=== PATIENT | female | born 1930 | race Caucasian/White ===

== ENCOUNTER 2017-10-12 08:22 | Inpatient (IN) | payer OTHER ==
--- NOTE | 2017-10-12 08:31 | PDOC ---
History of Present Illness - General Chief Complaint: Injury Stated Complaint: FALL Time Seen by Provider: 10/12/17 08:30 History Source: Patient Exam Limitations: No Limitations - History of Present Illness Initial Comments: 10/12/17 09:15 Ms. Osei is a 86 yo F with a hx of HTN and hypothyroidism presented to the emergency department BIBA after a fall in her independent living assistance home at [facility] in [place] this morning. She is unsure of the exact time, but states she was walking with her walker when she fell backwards and landed on the left side of her neck. She denies loss of consciousness. Was not in a C- collar on presentation and placed in one approximately within 15 minutes. Denies the following: headaches, fever, lightheadedness, chest pain, SOB, abdominal pain, dysuria, hematuria, diarrhea, and constipation. Pmhx: HTN, hypothyroidism Shx: Left knee replacement 03/2017. Medications: tramadol. Notes she is NOT on aspirin but medication list presented by [facility] states she is on aspirin Allergies: NKDA Social hx: denies smoking, alcohol, and substance abuse. Past History - Past Medical History Allergies/Adverse Reactions: Allergies Allergy/AdvReac Type Severity Reaction Status Date / Time No Known Allergies Allergy Verified 10/12/17 08:30 Home Medications: Ambulatory Orders Atenolol [Tenormin -] 25 mg PO DAILY 10/12/17 Felodipine [Felodipine ER] 2.5 mg PO DAILY 10/12/17 Levothyroxine [Synthroid -] 25 mcg PO DAILY 10/12/17 Pravastatin Sodium 20 mg PO DAILY 10/12/17 Venlafaxine HCl ER [Effexor Xr -] 37.5 mg PO DAILY 10/12/17 Review of Systems - Review of Systems Able to Perform ROS?: Yes Constitutional: No: Chills, Diaphoresis, Fever *Physical Exam - Physical Exam General Appearance: Yes: Nourished, Appropriately Dressed HEENT: positive: EOMI, RENATE, Other (mouth drooping ) Respiratory/Chest: positive: Lungs Clear, Normal Breath Sounds, Other ( bilateral decreased bases) Cardiovascular: positive: Regular Rate, S1, S2, Tachycardia Vascular Pulses: Dorsalis-Pedis (R): 3+, Doralis-Pedis (L): 3+ Gastrointestinal/Abdominal: positive: Normal Bowel Sounds. 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 Osei is a 86 yo F with a hx of HTN and hypothyroidism BIBA who presents s/ p mechanical fall in her living assistance home today landing on her left neck without loss of consciousness. She was placed in a c collar on arrival (not on one in the ambulance) and has a residual right mouth corner droop she states is residual from her bells palsy in . Neuro exam intact with motor and sensation bilaterally. right corner mouth lag. Of concern is a cellulitis on her left ankle that has been ongoing for past month. Oral temp wnl but rectal temp at 9:30 am showed 100.3F. Did not require O2 prior to ED visit and thus has been placed on 3 L nasal canula. Ddx: cervical fracture (type 2,3 dens fx, bilateral facet dislocation, burst fracture), syncopal event, cellulitis, pneumonia, sepsis Initial vitals: Initial Vital Signs Temp Pulse Resp BP Pulse Ox 99.8 F H 99 H 26 H 179/96 85 L 10/12/17 08:30 10/12/17 08:30 10/12/17 08:30 10/12/17 08:30 10/12/17 08:30 Work up: Sepsis work up initiated when rectal temperature taken. Dr. Rosas was consulted approximately 10:30 am, awaiting call back. Per Dr. Rosas's request, will order a cervical MRI without contrast for further characterization. Pt admitted for cervical fracture Disposition: 10/12/17 10:47 10/12/17 13:32 10/12/17 13:40 10/13/17 14:07 *DC/Admit/Observation/Transfer Diagnosis at time of Disposition: Cellulitis Qualifiers: Site of cellulitis: extremity Site of cellulitis of extremity: lower extremity Laterality: left Qualified Code(s): L03.116 - Cellulitis of left lower limb Cervical spine fracture Qualifiers: Encounter type: initial encounter Cervical vertebra fracture level: C2 Fracture type: closed Fracture morphology: unspecified fracture morphology Fracture alignment: nondisplaced Qualified Code(s): S12.101A - Unspecified nondisplaced fracture of second cervical vertebra, initial encounter for closed fracture - Discharge Dispostion Decision to Admit order: Yes - Referrals - Patient Instructions - Post Discharge Activity
--- NOTE | 2017-10-12 10:01 | PDOC ---
Attending Attestation - Resident Resident Name: Irvin Zhang - ED Attending Attestation I have performed the following: I have examined & evaluated the patient, The case was reviewed & discussed with the resident, I agree w/resident's findings & plan, Exceptions are as noted - HPI HPI: 10/12/17 10:00 The patient is a 86 year old female from [facility] brought in by EMS, with a past medical history of hypertension, hypothyroidism, and L sided bells palsy who presents to the emergency department for evaluation of neck pain s/p fall. The patient reports severe neck pain after landing on the left side of her neck after falling backwards while ambulating with her walker this morning. Pt states she is unsure of the time of the fall or how she fell. She denies loss of consciousness or other trauma. At presentation, the patient is sob. The pt also reports 2 weeks of a painful wound to her L heel that she has been applying mupirocin to. Pt has been able to bear weight but states the pain has been getting worse. Denies trauma to the heel. The patient denies palpitations, chest pain, abdominal pain, lower back pain, headache, and dizziness. Denies fever, chills, nausea, vomiting, and any bowel/ urinary symptoms. Allergies: NKDA Social History: No reported alcohol, cigarette, or drug use. Surgical History: Hysterectomy, left knee. PCP: Dr. Salomón Monteiro ([phone]) - Physicial Exam PE: 10/12/17 10:11 GENERAL: Awake, alert, appears uncomfortable. HEAD: No signs of trauma EYES: PERRLA, EOMI, sclera anicteric, conjunctiva clear ENT: Auricles normal inspection, hearing grossly normal, nares patent, oropharynx clear without exudates. Moist mucosa NECK: Normal ROM, supple, no lymphadenopathy, JVD, or masses LUNGS: Breath sounds equal, clear to auscultation bilaterally. Taking shallow breaths due to neck pain, on 3L NC HEART: Regular rate and rhythm, normal S1 and S2, no murmurs, rubs or gallops ABDOMEN: Soft, nontender, normoactive bowel sounds. No guarding, no rebound. No masses EXTREMITIES: Normal range of motion, no edema. No clubbing or cyanosis. No cords , erythema, or tenderness. L heel with dry wound with surrounding erythema and induration BACK: +midline spinal tenderness in cervical spine and sacrum. No stepoffs or deformities. No bruising. Normal rectal tone, brown stool. Rectal temp 100.3 NEUROLOGICAL: Normal speech, +L sided facial droop, negative pronator drift, 5/ 5 strength in all 4 extremities, normal sensation to light touch in all 4 extremities, normal cerebellar exam, normal reflexes and tone. Gait deferred. SKIN: Warm, Dry, normal turgor, no rashes or lesions noted. - Medical Decision Making 10/12/17 10:30 86yo F w MMP presents to the ED with severe neck pain s/p fall. C-collar placed immediately upon arrival. +C3 midline ttp. Pt turned with c-spine precautions, also has some mild sacral ttp. Pt also found to have temp of 100.3 and likely cellulitis to the L ankle. CT c-spine with unstable c2/c3 fractures. Dr. Rosas c/s, awaiting call back. Pt likely fell due to weakness from infection , possible sepsis. Pt has been covered with vanc/Zosyn. Will admit. Heart Score/ECG Review #1 10/12/17 10:21 Twelve-lead EKG was performed and reviewed by me. Normal sinus rhythm, rate 95. Normal axis and intervals. No ST elevations or T-wave inversions.
[2017-10-12 10:11] LABS: BASO % 0.5 % (0-2.0); EOS % 0.5 % (0-4.5); HEMATOCRIT 35.7 % (32.4-45.2); LYMPH % 4.2 % (8-40); MCH 28.2 pg (25.7-33.7); MCHC 33.5 g/dl (32.0-36.0); MEAN PLT VOLUME 8.5 fl (7.5-11.1); MONO % 14.6 % (3.8-10.2); NEUT % 80.2 % (42.8-82.8); PLATELET COUNT 285 K/MM3 (134-434); RBC 4.25 M/mm3 (3.60-5.2); RDW 17.8 % (11.6-15.6); WHITE BLOOD COUNT 13.9 K/mm3 (4.0-10.0)
[2017-10-12 10:13] LABS: VENOUS PC02 49.6 mmHg (38-52); VENOUS PH 7.4 (7.32-7.42); VENOUS PO2 27.9 mmHg (28-48)
[2017-10-12] MEDS ORDERED: VANCOMYCIN 1,000 MG in DEXTROSE 5%-WATER - 250 ML IVPB ONE (10:27)
[2017-10-12] MEDS ORDERED: PIPERACILLIN/TAZOB 4.5 GM 4.5 GM in DEXTROSE 5%-WATER - 100 ML IVPB ONE (10:27)
[2017-10-12] MEDS ORDERED: ACETAMINOPHEN 1000 MG/100 ML VIAL (NON FORMULARY) IVPB ONE (10:32)
[2017-10-12 10:33] LABS: ALBUMIN 3.3 g/dl (3.4-5.0); ANION GAP 9 (8-16); BILIRUBIN,TOTAL 0.4 mg/dL (0.2-1.0); BLOOD UREA NITROGEN 18 mg/dL (7-18); CALCIUM 8.5 mg/dL (8.5-10.1); CHLORIDE 99 mmol/L (98-107); CO2 29 mmol/L (21-32); CREATININE 0.7 mg/dL (0.55-1.02); GLUCOSE,RANDOM 148 mg/dL (74-106); POTASSIUM 3.5 mmol/L (3.5-5.1); SGOT/AST 19 U/L (15-37); SGPT/ALT 26 U/L (12-78); SODIUM 137 mmol/L (136-145)
[2017-10-12 10:35] LABS: INR 1.11 (0.83-1.09); PROTHROMBIN TIME (PATIENT) 12.5 SEC (9.7-13.0)
[2017-10-12] MEDS ORDERED: ACETAMINOPHEN INJECTION 100 ML IVPB ONE (10:36)
[2017-10-12 10:37] LABS: ALK PHOS 82 U/L (45-117); TOT PROT 6.8 g/dl (6.4-8.2)
[2017-10-12] MEDS ORDERED: PIPERACILLIN/TAZOB 4.5 GM 4.5 GM/100 ML BAG IVPB ONE (10:37)
[2017-10-12] MEDS ORDERED: VANCOMYCIN 1 GRAM (PRE-DOCKED) 1,000 MG/250 ML BAG IVPB ONE (10:37)
[2017-10-12 10:38] LABS: ACTIVATED PTT 25.7 SECONDS (25.2-36.5)
[2017-10-12 11:39] LABS: URINE APPEARANCE CLEAR; URINE BILIRUBIN NEGATIVE (<2.0 mg/dL); URINE COLOR LTYELLOW; URINE GLUCOSE (UA) NEGATIVE (NEGATIVE); URINE KETONE TRACE (NEGATIVE); URINE NITRITE NEGATIVE (NEGATIVE); URINE PROTEIN NEGATIVE (NEGATIVE); URINE UROBILINOGEN NEGATIVE mg/dL (0.2-1.0)
[2017-10-12 11:59] LABS: URINE LEUK ESTERASE 2+ (NEGATIVE)
[2017-10-12 12:14] LABS: EPI CELLS RARE /HPF (FEW)
--- NOTE | 2017-10-12 12:47 | EKG ---
Test Reason : Blood Pressure : / mmHG Vent. Rate : 095 BPM Atrial Rate : 095 BPM P-R Int : 124 ms QRS Dur : 098 ms QT Int : 370 ms P-R-T Axes : 049 -03 034 degrees QTc Int : 464 ms POOR DATA QUALITY, INTERPRETATION MAY BE ADVERSELY AFFECTED NORMAL SINUS RHYTHM POSSIBLE LEFT ATRIAL ENLARGEMENT BORDERLINE ECG NO PREVIOUS ECGS AVAILABLE Confirmed by SURAJ CASTILLO, GONZÁLEZ ([id number]) on 10/12/2017 12:46:52 PM Referred By: Confirmed By:GONZÁLEZ RUELAS MD
--- NOTE | 2017-10-12 13:40 | HP ---
CHIEF COMPLAINT: PCP: Dr. Salomón Monteiro [phone] (no answer) HISTORY OF PRESENT ILLNESS: 86 year-old female with a PMH significant for HTN and hypothyroidism, presented to the emergency department BIB after a fall in her independent living assistance home at [facility]. She was ambulating with her walker when she fell backwards and landed on the left side of her neck and she immediately felt "excruciating pain." She denies loss of consciousness. She was not in a C- collar on presentation but was placed in one within 15 minutes of arrival. Patient has been treated over the past several weeks for a LLE cellulitis. She was hospitalized for 2 days at [facility] and given IV antibiotics. She states the leg has never gotten better and over the past few days the leg is more red and painful. Patient denies headaches, fever, lightheadedness, chest pain, SOB, abdominal pain, dysuria, hematuria, diarrhea, and constipation. 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 x 2 Social History: Smoking: no Alcohol: no Drugs: no Family History: Allergies No Known Allergies Allergy (Verified 10/12/17 08:30) HOME MEDICATIONS: Home Medications Medication Instructions Recorded Atenolol [Tenormin -] 25 mg PO DAILY 10/12/17 Felodipine [Felodipine ER] 2.5 mg PO DAILY 10/12/17 Levothyroxine [Synthroid -] 25 mcg PO DAILY 10/12/17 Pravastatin Sodium 20 mg PO DAILY 10/12/17 Venlafaxine HCl ER [Effexor Xr -] 37.5 mg PO DAILY 10/12/17 REVIEW OF SYSTEMS CONSTITUTIONAL: Absent: fever, chills, diaphoresis, generalized weakness, malaise, loss of appetite, weight change HEENT: Absent: rhinorrhea, nasal congestion, throat pain, throat swelling, difficulty swallowing, mouth swelling, ear pain, eye pain, visual changes CARDIOVASCULAR: Absent: chest pain, syncope, palpitations, irregular heart rate, lightheadedness , peripheral edema RESPIRATORY: Absent: cough, shortness of breath, dyspnea with exertion, orthopnea, wheezing, stridor, hemoptysis GASTROINTESTINAL: Absent: abdominal pain, abdominal distension, nausea, vomiting, diarrhea, constipation, melena, hematochezia GENITOURINARY: Absent: dysuria, frequency, urgency, hesitancy, hematuria, flank pain, genital pain MUSCULOSKELETAL: +neck pain Absent: myalgia, arthralgia, joint swelling, back pain, neck pain SKIN: +pain, swelling, redness left lower extremity Absent: rash, itching, pallor HEMATOLOGIC/IMMUNOLOGIC: Absent: easy bleeding, easy bruising, lymphadenopathy, frequent infections ENDOCRINE: Absent: unexplained weight gain, unexplained weight loss, heat intolerance, cold intolerance NEUROLOGIC: Absent: headache, focal weakness or paresthesias, dizziness, unsteady gait, seizure, mental status changes, bladder or bowel incontinence PSYCHIATRIC: Absent: anxiety, depression, suicidal or homicidal ideation, hallucinations. PHYSICAL EXAMINATION Vital Signs - 24 hr 10/12/17 10/12/17 08:30 10:57 Temperature 99.8 F H 100.1 F H Pulse Rate 99 H Respiratory 26 H Rate Blood Pressure 179/96 O2 Sat by Pulse 85 L Oximetry (%) GENERAL: Awake, alert, and fully oriented, in no acute distress. HEAD: In hard collar EYES: Pupils equal, round and reactive to light, extraocular movements intact, sclera anicteric, conjunctiva clear. No lid lag. LUNGS: Breath sounds equal, clear to auscultation bilaterally HEART: Regular rate and rhythm, normal S1 and S2 ABDOMEN: Soft, nontender, not distended UPPER EXTREMITIES: 2+ pulses, warm, well-perfused. No cyanosis. No clubbing. No peripheral edema. RIGHT LOWER EXTREMITIY: 2+ pulses, warm, well-perfused. No calf tenderness. No peripheral edema. LEFT LOWER EXTREMITY: Erythema from barrera to foot, warm to touch, tender NEUROLOGICAL: Cranial nerves II-XII intact. Normal speech. Laboratory Results - last 24 hr 10/12/17 10/12/17 10/12/17 09:53 09:53 09:53 WBC 13.9 H RBC 4.25 Hgb 12.0 Hct 35.7 MCV 84.0 MCH 28.2 MCHC 33.5 RDW 17.8 H Plt Count 285 MPV 8.5 Absolute Neuts (auto) 11.2 Neutrophils % 80.2 Lymphocytes % 4.2 L Monocytes % 14.6 H Eosinophils % 0.5 Basophils % 0.5 Nucleated RBC % 0 PT with INR 12.50 INR 1.11 H PTT (Actin FS) 25.7 VBG pH 7.40 POC VBG pCO2 49.6 POC VBG pO2 27.9 L Mixed VBG HCO3 30.2 H Sodium Potassium Chloride Carbon Dioxide Anion Gap BUN Creatinine Creat Clearance w eGFR Random Glucose Lactic Acid Calcium Total Bilirubin AST ALT Alkaline Phosphatase Troponin I Total Protein Albumin Urine Color Urine Appearance Urine pH Ur Specific [place] Urine Protein Urine Glucose (UA) Urine Ketones Urine Blood Urine Nitrite Urine Bilirubin Urine Urobilinogen Ur Leukocyte Esterase Urine WBC (Auto) Urine RBC (Auto) Ur Epithelial Cells 10/12/17 10/12/17 10/12/17 09:53 09:53 09:53 WBC RBC Hgb Hct MCV MCH MCHC RDW Plt Count MPV Absolute Neuts (auto) Neutrophils % Lymphocytes % Monocytes % Eosinophils % Basophils % Nucleated RBC % PT with INR INR PTT (Actin FS) VBG pH POC VBG pCO2 POC VBG pO2 Mixed VBG HCO3 Sodium 137 Potassium 3.5 Chloride 99 Carbon Dioxide 29 Anion Gap 9 BUN 18 Creatinine 0.7 Creat Clearance w eGFR > 60 Random Glucose 148 H Lactic Acid 1.0 Calcium 8.5 Total Bilirubin 0.4 AST 19 ALT 26 Alkaline Phosphatase 82 Troponin I < 0.02 Cancelled Total Protein 6.8 Albumin 3.3 L Urine Color Urine Appearance Urine pH Ur Specific [place] Urine Protein Urine Glucose (UA) Urine Ketones Urine Blood Urine Nitrite Urine Bilirubin Urine Urobilinogen Ur Leukocyte Esterase Urine WBC (Auto) Urine RBC (Auto) Ur Epithelial Cells 10/12/17 11:20 WBC RBC Hgb Hct MCV MCH MCHC RDW Plt Count MPV Absolute Neuts (auto) Neutrophils % Lymphocytes % Monocytes % Eosinophils % Basophils % Nucleated RBC % PT with INR INR PTT (Actin FS) VBG pH POC VBG pCO2 POC VBG pO2 Mixed VBG HCO3 Sodium Potassium Chloride Carbon Dioxide Anion Gap BUN Creatinine Creat Clearance w eGFR Random Glucose Lactic Acid Calcium Total Bilirubin AST ALT Alkaline Phosphatase Troponin I Total Protein Albumin Urine Color Ltyellow Urine Appearance Clear Urine pH 7.0 Ur Specific [place] 1.009 Urine Protein Negative Urine Glucose (UA) Negative Urine Ketones Trace H Urine Blood Negative Urine Nitrite Negative Urine Bilirubin Negative Urine Urobilinogen Negative Ur Leukocyte Esterase 2+ H Urine WBC (Auto) 17 Urine RBC (Auto) 1 Ur Epithelial Cells Rare Imaging 10/12 CT c-spine: nondiscplaced fracture right lateral mass of C2 and left lamina C3 10/12 CT head: no acute process; left frontal lobe 1.2cm calcified meningioma; mild soft tissue swelling of scalp over right posterior parietal bone ASSESSMENT/PLAN 86 year-old female with a PMH significant for HTN and hypothyroidism. Admitted for c-spine fracture following mechanical fall. Cervical spine fracture --discussed with , awaiting MRI results to determine whether surgery indicated --morphine PRN --maintain hard collar LLE Cellulitis --verified with pharmacy patient was prescribed Augmentin on 09/14/17 and then Cipro 09/22/17 --was also hospitalized for two days on IV antibiotics --continue Vanc and Zosyn started in ED --ID consult Hypothyroidism --TSH wnl --continue levothyroxine FEN Fluids: NS @ 75mL/hr Electrolytes: replete as indicated Nutrition: NPO DVT prophylaxis: SCD right leg Dispo: requires inpatient care. Discussed case with brother Olu Naidu, [phone]. Visit type - Emergency Visit Emergency Visit: Yes ED Registration Date: 10/12/17 Care time: The patient presented to the Emergency Department on the above date and was hospitalized for further evaluation of their emergent condition. - New Patient This patient is new to me today: Yes Date on this admission: 10/12/17 - Critical Care Critical Care patient: No Hospitalist Screening - Colonoscopy Questionnaire Colonoscopy Questionnaire: Colonoscopy Questionnaire - Patient: 50 - 75 years old and never had a screening colonoscopy: No History of colon or rectal polyps, or CA: No History of IBD, Crohn's disease or UC: No History of abdominal radiation therapy as a child: No - Relative: 1 with colon or rectal CA, or polyps at age 60 or younger: Unknown Colon or rectal CA diagnosed at age 45 or younger: Unknown Multiple relatives with colon or rectal CA: Unknown - Outcome: Screening Result: Negative Screen
[2017-10-12] MEDS ORDERED: morphine CARPU-JECT 2 MG/1 ML DISP.SYRIN IVPUSH ONE ×2 (14:18→15:53)
[2017-10-12] MEDS ORDERED: MORPHINE SULFATE 2 MG/ML VIAL ONE (14:22)
[2017-10-12] MEDS: SODIUM CHLORIDE 1,000 ML IV SCH (14:23)
[2017-10-12] MEDS ORDERED: FELODIPINE 2.5 MG PO SCH (20:00)
[2017-10-12] MEDS ORDERED: VANCOMYCIN 1 GM PREMIX - 1 GM/200 ML BAG IVPB SCH (20:00)
[2017-10-12] MEDS ORDERED: VANCOMYCIN 1 GM PREMIX - 1 GM/200 ML BAG IVPB ONE (20:00)
[2017-10-12] MEDS ORDERED: PIPERACILLIN/TAZOB 3.375 GM 3.375 GM in DEXTROSE 5%-WATER - 50 ML IVPB SCH (20:00)
[2017-10-12] MEDS: MORPHINE SULFATE 2 MG/ML VIAL IVPUSH PRN (20:52)
[2017-10-12] MEDS ORDERED: PT OWN MED DRAWER 7, Y5N ONE ×2 (21:04→22:01)
[2017-10-12] MEDS ORDERED: PIPERACILLIN/TAZOBACTAM 3.375 GM VIAL IVPB ONE (21:05)
[2017-10-12] MEDS ORDERED: DEXTROSE 5%-WATER - 50 ML IVPB ONE (21:05)
[2017-10-12] MEDS: PIPERACILLIN/TAZOB 3.375 GM 3.375 GM in DEXTROSE 5%-WATER - 50 ML IVPB SCH (22:04)
[2017-10-12] MEDS: ATENOLOL 25 MG TABLET (FP) PO SCH (22:04)
[2017-10-12] MEDS: ATORVASTATIN CA 10 MG TABLET (FP) PO SCH (22:05)
[2017-10-12] MEDS: amLODIPine BESYLATE 2.5 MG TABLET (FP) PO SCH (22:05)
[2017-10-12] MEDS: VENLAFAXINE HCL 37.5 MG E.R. CAPSULE (FP) PO SCH (22:06)
[2017-10-13] MEDS: MORPHINE SULFATE 2 MG/ML VIAL IVPUSH PRN ×3 (00:28→18:57)
[2017-10-13] MEDS: PIPERACILLIN/TAZOB 3.375 GM 3.375 GM in DEXTROSE 5%-WATER - 50 ML IVPB SCH (05:30)
[2017-10-13] MEDS ORDERED: DEXTROSE 5%-WATER - 50 ML IVPB ONE (05:34)
[2017-10-13] MEDS ORDERED: PIPERACILLIN/TAZOBACTAM 3.375 GM VIAL IVPB ONE (05:34)
[2017-10-13] MEDS: LEVOTHYROXINE NA 25 MCG TABLET (FP) PO SCH (06:01)
[2017-10-13 08:23] LABS: BASO % 0.3 % (0-2.0); EOS % 0.2 % (0-4.5); HEMATOCRIT 31.8 % (32.4-45.2); HEMOGLOBIN 10.8 GM/dL (10.7-15.3); LYMPH % 7.1 % (8-40); MCH 28.5 pg (25.7-33.7); MEAN CELL VOLUME 83.9 fl (80-96); MEAN PLT VOLUME 8.1 fl (7.5-11.1); MONO % 23.1 % (3.8-10.2); NEUT % 69.3 % (42.8-82.8); PLATELET COUNT 239 K/MM3 (134-434); RBC 3.79 M/mm3 (3.60-5.2); WHITE BLOOD COUNT 15.3 K/mm3 (4.0-10.0)
[2017-10-13 08:54] LABS: ALBUMIN 2.6 g/dl (3.4-5.0); ANION GAP 8 (8-16); BLOOD UREA NITROGEN 13 mg/dL (7-18); CHLORIDE 102 mmol/L (98-107); CO2 29 mmol/L (21-32); CREATININE 0.6 mg/dL (0.55-1.02); GLUCOSE,RANDOM 110 mg/dL (74-106); MAGNESIUM 2.2 mg/dL (1.8-2.4); SGOT/AST 22 U/L (15-37); SGPT/ALT 26 U/L (12-78); SODIUM 139 mmol/L (136-145)
[2017-10-13 08:56] LABS: ALK PHOS 68 U/L (45-117); BILIRUBIN,TOTAL 0.4 mg/dL (0.2-1.0)
--- NOTE | 2017-10-13 09:03 | PN ---
Physical Exam: SUBJECTIVE: Patient seen and examined. Brother and sister in law present. Discussed possible rehab locations. OBJECTIVE: Vital Signs Period Temp Pulse Resp BP Sys/Dinh Pulse Ox Last 24 Hr 98.7 F-100.1 F 70-81 18-18 128-164/81-94 96-97 GENERAL: The patient is awake, alert, A&Ox 3. HEAD: Hard C-collar in place LUNGS: Breath sounds equal, clear to auscultation bilaterally, no wheezes, no crackles, no accessory muscle use. HEART: Regular rate and rhythm, S1, S2 ABDOMEN: Firm and distended LEFT LOWER EXTREMITY: Erythema from barrera to foot is improved, not as tender, persistent erythema Laboratory Results - last 24 hr 10/12/17 10/12/17 10/12/17 09:53 09:53 09:53 WBC 13.9 H RBC 4.25 Hgb 12.0 Hct 35.7 MCV 84.0 MCH 28.2 MCHC 33.5 RDW 17.8 H Plt Count 285 MPV 8.5 Absolute Neuts (auto) 11.2 Neutrophils % 80.2 Lymphocytes % 4.2 L Monocytes % 14.6 H Eosinophils % 0.5 Basophils % 0.5 Nucleated RBC % 0 PT with INR 12.50 INR 1.11 H PTT (Actin FS) 25.7 VBG pH 7.40 POC VBG pCO2 49.6 POC VBG pO2 27.9 L Mixed VBG HCO3 30.2 H Sodium Potassium Chloride Carbon Dioxide Anion Gap BUN Creatinine Creat Clearance w eGFR Random Glucose Lactic Acid Calcium Total Bilirubin AST ALT Alkaline Phosphatase Troponin I Total Protein Albumin TSH Urine Color Urine Appearance Urine pH Ur Specific [place] Urine Protein Urine Glucose (UA) Urine Ketones Urine Blood Urine Nitrite Urine Bilirubin Urine Urobilinogen Ur Leukocyte Esterase Urine WBC (Auto) Urine RBC (Auto) Ur Epithelial Cells Blood Type Antibody Screen 10/12/17 10/12/17 10/12/17 09:53 09:53 09:53 WBC RBC Hgb Hct MCV MCH MCHC RDW Plt Count MPV Absolute Neuts (auto) Neutrophils % Lymphocytes % Monocytes % Eosinophils % Basophils % Nucleated RBC % PT with INR INR PTT (Actin FS) VBG pH POC VBG pCO2 POC VBG pO2 Mixed VBG HCO3 Sodium 137 Potassium 3.5 Chloride 99 Carbon Dioxide 29 Anion Gap 9 BUN 18 Creatinine 0.7 Creat Clearance w eGFR > 60 Random Glucose 148 H Lactic Acid 1.0 Calcium 8.5 Total Bilirubin 0.4 AST 19 ALT 26 Alkaline Phosphatase 82 Troponin I < 0.02 Cancelled Total Protein 6.8 Albumin 3.3 L TSH Urine Color Urine Appearance Urine pH Ur Specific [place] Urine Protein Urine Glucose (UA) Urine Ketones Urine Blood Urine Nitrite Urine Bilirubin Urine Urobilinogen Ur Leukocyte Esterase Urine WBC (Auto) Urine RBC (Auto) Ur Epithelial Cells Blood Type Antibody Screen 10/12/17 10/12/17 10/12/17 11:20 17:30 17:30 WBC RBC Hgb Hct MCV MCH MCHC RDW Plt Count MPV Absolute Neuts (auto) Neutrophils % Lymphocytes % Monocytes % Eosinophils % Basophils % Nucleated RBC % PT with INR INR PTT (Actin FS) VBG pH POC VBG pCO2 POC VBG pO2 Mixed VBG HCO3 Sodium Potassium Chloride Carbon Dioxide Anion Gap BUN Creatinine Creat Clearance w eGFR Random Glucose Lactic Acid Calcium Total Bilirubin AST ALT Alkaline Phosphatase Troponin I Total Protein Albumin TSH 0.85 Urine Color Ltyellow Urine Appearance Clear Urine pH 7.0 Ur Specific [place] 1.009 Urine Protein Negative Urine Glucose (UA) Negative Urine Ketones Trace H Urine Blood Negative Urine Nitrite Negative Urine Bilirubin Negative Urine Urobilinogen Negative Ur Leukocyte Esterase 2+ H Urine WBC (Auto) 17 Urine RBC (Auto) 1 Ur Epithelial Cells Rare Blood Type B POSITIVE Antibody Screen Negative 10/12/17 10/13/17 23:10 08:00 WBC 15.3 H RBC 3.79 Hgb 10.8 Hct 31.8 L MCV 83.9 MCH 28.5 MCHC 34.0 RDW 18.0 H Plt Count 239 MPV 8.1 Absolute Neuts (auto) 10.6 Neutrophils % 69.3 Lymphocytes % 7.1 L D Monocytes % 23.1 H Eosinophils % 0.2 Basophils % 0.3 Nucleated RBC % 0 PT with INR INR PTT (Actin FS) VBG pH POC VBG pCO2 POC VBG pO2 Mixed VBG HCO3 Sodium Potassium Chloride Carbon Dioxide Anion Gap BUN Creatinine Creat Clearance w eGFR Random Glucose Lactic Acid Calcium Total Bilirubin AST ALT Alkaline Phosphatase Troponin I Total Protein Albumin TSH Urine Color Urine Appearance Urine pH Ur Specific [place] Urine Protein Urine Glucose (UA) Urine Ketones Urine Blood Urine Nitrite Urine Bilirubin Urine Urobilinogen Ur Leukocyte Esterase Urine WBC (Auto) Urine RBC (Auto) Ur Epithelial Cells Blood Type B POSITIVE Antibody Screen Active Medications Generic Name Dose Route Start Last Admin Trade Name Freq PRN Reason Stop Dose Admin Acetaminophen 650 mg 10/12/17 14:52 Tylenol - PO Q6H PRN PAIN LEVEL 1-5 Amlodipine Besylate 2.5 mg 10/12/17 20:15 10/12/17 22:05 Norvasc - PO 2.5 mg DAILY ALLYN Administration Atenolol 25 mg 10/12/17 20:00 10/12/17 22:04 Tenormin - PO 25 mg DAILY ALLYN Administration Atorvastatin Calcium 10 mg 10/12/17 22:00 10/12/17 22:05 Lipitor - PO 10 mg HS ALLYN Administration Sodium Chloride 1,000 mls @ 75 mls/hr 10/12/17 14:15 10/12/17 14:23 Normal Saline - IV 75 mls/hr ASDIR ALLYN Administration Vancomycin HCl 1 gm in 200 mls @ 133.333 mls/hr 10/12/17 20:00 Vancomycin 1 Gm Premix - IVPB Q12H ALLYN Piperacillin Sod/Tazobactam 50 mls @ 100 mls/hr 10/12/17 20:00 Sod 3.375 gm/ Dextrose IVPB Q8H-IV ALLYN Protocol Levothyroxine Sodium 25 mcg 10/13/17 07:00 10/13/17 06:01 Synthroid - PO 25 mcg DAILY@0700 ALLYN Administration Morphine Sulfate 2 mg 10/12/17 19:49 10/13/17 00:28 Morphine Sulfate IVPUSH 2 mg Q4H PRN Administration PAIN LEVEL 6-10 Venlafaxine HCl 37.5 mg 10/12/17 20:00 10/12/17 22:06 Effexor Xr - PO 37.5 mg DAILY ALLYN Administration Imaging 10/12 CT c-spine: nondiscplaced fracture right lateral mass of C2 and left lamina C3 10/12 CT head: no acute process; left frontal lobe 1.2cm calcified meningioma; mild soft tissue swelling of scalp over right posterior parietal bone ASSESSMENT/PLAN 86 year-old female with a PMH significant for HTN and hypothyroidism. Admitted for c-spine fracture following mechanical fall. Cervical spine fracture --discussed with , awaiting MRI results to determine whether surgery indicated --morphine PRN --maintain hard collar LLE Cellulitis --was hospitalized within the past month for same problem and treated with IV antibiotics x 2 days; then given Augmentin on 09/14/17, then Cipro 09/22/17 --continue Vanc and Zosyn started in ED --ID consult Hypothyroidism --TSH wnl --continue levothyroxine FEN Fluids: NS @ 75mL/hr Electrolytes: replete as indicated Nutrition: NPO DVT prophylaxis: SCD right leg Dispo: requires inpatient care. Discussed case with HCP brother Olu Naidu, . Visit type - Emergency Visit Emergency Visit: Yes ED Registration Date: 10/12/17 Care time: The patient presented to the Emergency Department on the above date and was hospitalized for further evaluation of their emergent condition. - New Patient This patient is new to me today: No - Critical Care Critical Care patient: No
[2017-10-13 09:25] LABS: POTASSIUM 2.8 mmol/L (3.5-5.1)
[2017-10-13 09:46] LABS: PLATELET ESTIMATE NORMAL
[2017-10-13] MEDS ORDERED: PT OWN MED DRAWER 7, Y5N ONE ×2 (09:52→22:13)
[2017-10-13] MEDS: POTASSIUM CHLORIDE TABS 20 MEQ TABLET.ER (FP) PO SCH ×2 (09:59→14:39)
[2017-10-13] MEDS: ATENOLOL 25 MG TABLET (FP) PO SCH (10:00)
[2017-10-13] MEDS: VENLAFAXINE HCL 37.5 MG E.R. CAPSULE (FP) PO SCH (10:00)
[2017-10-13] MEDS: amLODIPine BESYLATE 2.5 MG TABLET (FP) PO SCH (10:00)
--- NOTE | 2017-10-13 13:25 | PN ---
Progress Note (short form) - Note Progress Note: ID consult dictated imp/reccd s/p fall with cervical fracture- awaiting neurosurgery evaluation erythema of the LLE for one month-painful no scratches no fevers seen by multiple doctors tried po antibiotics was hospitalized at [facility] for 2 days and d/c on po meds-2 weeks ago using mupirocin cream all with no improvement now with ulcer at achilles heel from her sneaker on the same foot not sure this is cellulitis- ?vasculitis too painful, doubt vascular she has a good pulse suggest ceftaroline iv topical steroids esr/crp DERM consult Problem List - Problems (1) Cellulitis Code(s): L03.90 - CELLULITIS, UNSPECIFIED Qualifiers: Site of cellulitis: extremity Site of cellulitis of extremity: lower extremity Laterality: left Qualified Code(s): L03.116 - Cellulitis of left lower limb (2) Cervical spine fracture Code(s): S12.9XXA - FRACTURE OF NECK, UNSPECIFIED, INITIAL ENCOUNTER Qualifiers: Encounter type: initial encounter Cervical vertebra fracture level: C2 Fracture type: closed Fracture morphology: unspecified fracture morphology Fracture alignment: nondisplaced Qualified Code(s): S12.101A - Unspecified nondisplaced fracture of second cervical vertebra, initial encounter for closed fracture
[2017-10-13] MEDS: SODIUM CHLORIDE 1,000 ML IV SCH (14:40)
[2017-10-13] MEDS: HYDROCORTISONE 1% TOPICAL CREAM 30 GM TUBE TP SCH ×2 (14:40→22:52)
--- NOTE | 2017-10-13 15:02 | CONS ---
DATE OF CONSULTATION: DATE OF DICTATION: 10/13/2017 CONSULTATION REQUESTED BY: The hospitalist service. HISTORY: This is an 86-year-old woman who is living in assisted living. She has a history of hypertension, hypothyroidism. She is status post a left knee replacement in 2018 in March. She was using her walker. She felt lightheaded and fell backwards, and she injured her neck. She was brought to the emergency room. There was no syncope. She gave no history of any fevers. Of note, for the last 1 month, the month of September, she has been having pain and erythema of her left lower extremity. She says she has been to at least 5-6 doctors. She was told be one that she had gout. She was told by another doctor there was nothing wrong. She was given a variety of medications including oral antibiotics per the hospitalist note. She received apparently Augmentin and then Cipro, which was verified with the pharmacy. She was hospitalized at [facility] in mid September for she says 2-1/2 days, treated IV antibiotics. She was discharged on medications including what she reports are pain killers. She has had no improvement in the pain. The redness is about the same. She has been also using mupirocin cream on the leg twice a day with no improvement. She now has an ulcer at the Achilles tendon of the same foot, which she reports is from her sneaker and has occurred after the erythema and pain of the leg started. PAST MEDICAL HISTORY: Notable for hypertension, hypothyroidism, Arguelles's palsy in the . PAST SURGICAL HISTORY: Hysterectomy, left knee replacement in March of 2017. She has had C-sections x2. SOCIAL HISTORY: She is . She resides at the [facility]. There is no history of smoking or substance use. FAMILY HISTORY: Noncontributory. ALLERGIES: She has no known drug allergies. MEDICATIONS: Her medications include atenolol, felodipine, levothyroxine, pravastatin, and Effexor. REVIEW OF SYSTEMS: Notable for neck pain. She is wearing a neck collar, and for this left lower extremity which she describes as extremely painful to touch. She denies any scratches to the leg. She has no pets. PHYSICAL EXAMINATION: General: She is a pleasant woman. She is wearing a hard collar on her neck. Vital Signs: T-max was 100.1 in the emergency room. Current temperature is 98.4, pulse of 78, blood pressure 155/77. Respiratory rate is 22. HEENT: She is normocephalic. Her eyes are anicteric. She has a neck collar on. Lungs: Clear to auscultation. Heart: Regular rate and rhythm. Abdomen: Soft. Extremities: The left knee incision is well healed. She has this diffuse erythema of the lower aspect of the leg. It is extremely painful to touch. She has no induration. It is not really warm. She has a good dorsal pedal pulse. At the back of the heel on the lower Achilles tendon she has an ulcer which she reports is from her shoe. LABORATORY: Notable for a white count of 15.3, hemoglobin 10.8. Platelets are 239. INR is 1. BUN and creatinine are 13 and 0.6. LFTs are normal. Urinalysis shows 2+ leukocyte esterase. Vancomycin level was 13 this morning. She received vancomycin and Zosyn in the emergency room for the cellulitis of the leg. She has had multiple imagings of her head, of her foot, ankle, and MRI of her C-spine consistent with cervical fracture. X-ray of the foot shows no signs of any fracture. There is some old trauma with arthritic changes of the 3rd metatarsal and extensive bunion formation of the 1st metatarsal. SUMMARY: 1. This is an unfortunate 86-year-old woman who is status post fall with cervical fracture, awaiting neurosurgical evaluation. 2. Erythema of the left lower extremity for the last month. It is exquisitely painful but has not improved with broad-spectrum antibiotics. I am not convinced this is a cellulitis. She has a good pulse, making it unlikely to be a vascular problem. Could this be a vasculitis. Would suggest we treat her with ceftaroline which will give her both MRSA coverage as well as broad-spectrum coverage. Would try topical steroids. Would check a sedimentation rate and a CRP and consider a dermatology consult. Further recommendations to follow. MILAD CALDERON M.D. [id number]
[2017-10-13] MEDS: CEFTAROLINE FOSAMIL ACETATE 600 MG in DEXTROSE 5%-WATER - 100 ML IVPB SCH ×2 (15:07→22:55)
[2017-10-13] MEDS: ACETAMINOPHEN 325 MG TABLET (FP) PO PRN (22:24)
[2017-10-13] MEDS: ATORVASTATIN CA 10 MG TABLET (FP) PO SCH (22:25)
[2017-10-14] MEDS: MORPHINE SULFATE 2 MG/ML VIAL IVPUSH PRN ×2 (01:23→10:50)
[2017-10-14] MEDS: LEVOTHYROXINE NA 25 MCG TABLET (FP) PO SCH (06:06)
[2017-10-14] MEDS: SODIUM CHLORIDE 1,000 ML IV SCH ×2 (06:08→21:02)
[2017-10-14 08:12] LABS: BASO % 0.3 % (0-2.0); EOS % 0.4 % (0-4.5); HEMATOCRIT 35.7 % (32.4-45.2); HEMOGLOBIN 11.9 GM/dL (10.7-15.3); LYMPH % 6.2 % (8-40); MCH 28.4 pg (25.7-33.7); MCHC 33.5 g/dl (32.0-36.0); MEAN CELL VOLUME 84.7 fl (80-96); MEAN PLT VOLUME 8.7 fl (7.5-11.1); MONO % 15.7 % (3.8-10.2); NEUT % 77.4 % (42.8-82.8); PLATELET COUNT 272 K/MM3 (134-434); RBC 4.21 M/mm3 (3.60-5.2); WHITE BLOOD COUNT 14.6 K/mm3 (4.0-10.0)
[2017-10-14 08:46] LABS: ALBUMIN 2.8 g/dl (3.4-5.0); ALK PHOS 79 U/L (45-117); ANION GAP 10 (8-16); BILIRUBIN,TOTAL 0.5 mg/dL (0.2-1.0); BLOOD UREA NITROGEN 13 mg/dL (7-18); CALCIUM 8.2 mg/dL (8.5-10.1); CHLORIDE 103 mmol/L (98-107); CO2 26 mmol/L (21-32); CREATININE 0.6 mg/dL (0.55-1.02); GLUCOSE,RANDOM 128 mg/dL (74-106); MAGNESIUM 2.1 mg/dL (1.8-2.4); POTASSIUM 3.7 mmol/L (3.5-5.1); SGOT/AST 21 U/L (15-37); SGPT/ALT 28 U/L (12-78); SODIUM 139 mmol/L (136-145); TOT PROT 6.7 g/dl (6.4-8.2)
[2017-10-14] MEDS ORDERED: PT OWN MED DRAWER 7, Y5N ONE ×3 (09:43→20:37)
[2017-10-14] MEDS: amLODIPine BESYLATE 2.5 MG TABLET (FP) PO SCH (09:51)
[2017-10-14] MEDS: ATENOLOL 25 MG TABLET (FP) PO SCH (09:51)
[2017-10-14] MEDS: HYDROCORTISONE 1% TOPICAL CREAM 30 GM TUBE TP SCH ×2 (09:54→21:08)
[2017-10-14] MEDS: VENLAFAXINE HCL 37.5 MG E.R. CAPSULE (FP) PO SCH (09:54)
[2017-10-14] MEDS: CEFTAROLINE FOSAMIL ACETATE 600 MG in DEXTROSE 5%-WATER - 100 ML IVPB SCH ×2 (10:23→21:02)
--- NOTE | 2017-10-14 11:15 | PN ---
Physical Exam: SUBJECTIVE: Patient seen and examined at bedside. Combative, agitated. OBJECTIVE: Vital Signs Period Temp Pulse Resp BP Sys/Dinh Pulse Ox Last 24 Hr 98.4 F-99.0 F 79-104 18-20 128-180/84-94 95 GENERAL: The patient is awake. Intermittent periods of lucidity when A&Ox3; periods of agitation, disorientation, and combativeness, trying to get out of bed, tried to pull gibson 3 times, verbally abusive to staff LUNGS: Breath sounds equal, clear to auscultation bilaterally, no wheezes, no crackles, no accessory muscle use. HEART: Regular rate and rhythm, S1, S2 ABDOMEN: Firm and distended LEFT LOWER EXTREMITY: Erythema from barrera to foot is improved, not as tender Laboratory Results - last 24 hr 10/13/17 10/13/17 10/14/17 18:00 18:00 07:20 WBC 14.6 H RBC 4.21 Hgb 11.9 Hct 35.7 MCV 84.7 MCH 28.4 MCHC 33.5 RDW 18.0 H Plt Count 272 MPV 8.7 Absolute Neuts (auto) 11.3 Neutrophils % 77.4 Lymphocytes % 6.2 L Monocytes % 15.7 H Eosinophils % 0.4 D Basophils % 0.3 Nucleated RBC % 0 ESR 92 H Sodium Potassium Chloride Carbon Dioxide Anion Gap BUN Creatinine Creat Clearance w eGFR Random Glucose Calcium Magnesium Total Bilirubin AST ALT Alkaline Phosphatase C-Reactive Protein 23.3 H Total Protein Albumin 10/14/17 07:20 WBC RBC Hgb Hct MCV MCH MCHC RDW Plt Count MPV Absolute Neuts (auto) Neutrophils % Lymphocytes % Monocytes % Eosinophils % Basophils % Nucleated RBC % ESR Sodium 139 Potassium 3.7 Chloride 103 Carbon Dioxide 26 Anion Gap 10 BUN 13 Creatinine 0.6 Creat Clearance w eGFR > 60 Random Glucose 128 H Calcium 8.2 L Magnesium 2.1 Total Bilirubin 0.5 AST 21 ALT 28 Alkaline Phosphatase 79 D C-Reactive Protein Total Protein 6.7 Albumin 2.8 L Active Medications Generic Name Dose Route Start Last Admin Trade Name Freq PRN Reason Stop Dose Admin Acetaminophen 650 mg 10/12/17 14:52 10/13/17 22:24 Tylenol - PO 650 mg Q6H PRN Administration PAIN LEVEL 1-5 Amlodipine Besylate 2.5 mg 10/12/17 20:15 10/14/17 09:51 Norvasc - PO 2.5 mg DAILY ALL[facility] Administration Atenolol 25 mg 10/12/17 20:00 10/14/17 09:51 Tenormin - PO 25 mg DAILY ALLYN Administration Atorvastatin Calcium 10 mg 10/12/17 22:00 10/13/17 22:25 Lipitor - PO 10 mg HS ALLYN Administration Hydrocortisone 1 applic 10/13/17 13:45 10/14/17 09:54 Hytone 1% Cream - TP 1 applic BID ALLYN Administration Sodium Chloride 1,000 mls @ 75 mls/hr 10/12/17 14:15 10/14/17 06:08 Normal Saline - IV 75 mls/hr ASDIR ALL[facility] Administration Ceftaroline Fosamil 600 mg/ 100 mls @ 200 mls/hr 10/13/17 13:45 10/14/17 10: 23 Dextrose IVPB 200 mls/hr BID ALL[facility] Administration Protocol Levothyroxine Sodium 25 mcg 10/13/17 07:00 10/14/17 06:06 Synthroid - PO 25 mcg DAILY@0700 [facility] Administration Morphine Sulfate 2 mg 10/12/17 19:49 10/14/17 10:50 Morphine Sulfate IVPUSH 2 mg Q4H PRN Administration PAIN LEVEL 6-10 Venlafaxine HCl 37.5 mg 10/12/17 20:00 10/14/17 09:54 Effexor Xr - PO 37.5 mg DAILY [facility] Administration Imaging 10/12 CT c-spine: nondiscplaced fracture right lateral mass of C2 and left lamina C3 10/12 CT head: no acute process; left frontal lobe 1.2cm calcified meningioma; mild soft tissue swelling of scalp over right posterior parietal bone ASSESSMENT/PLAN 86 year-old female with a PMH significant for HTN, HLD, and hypothyroidism. Admitted for c-spine fracture following mechanical fall. Cervical spine fracture --discussed with , no surgical intervention at this time --maintain hard collar LLE Cellulitis v. vasculitis --erythema and tenderness improved this evening --unable to get either derm or vascular to see patient over the weekend, will need to wait for Monday --continue ceftaroline, topical hydrocortisone --ID following Delirium --onset of acute altered mental status last night; family denies any previous episodes of this type, denies h/o dementia --nursing staff provided hours of attempting to re-orient patient, low dose PO lorazepam given, then haldol IM 2mg, all to no effect --situation complicated by prolonged QT interval --discussed with associate school psychologist Sammi and gave mirtazapine 7.5mg x 1 with good effect, patient resting more comfortably --continue home dose Effexor XR --psych to follow, input much appreciated Urinary retention --significant bladder distension; placed gibson-->1,000cc's output --repeat UA & UC pending --has had 3 BMs --strict I&Os, daily weights Hypertension --BP elevated, likely worsened by agitation --continue amlodipine, atendolol Hypothyroidism --TSH wnl --continue levothyroxine FEN Fluids: PO intake adequate Electrolytes: replete as indicated Nutrition: regular diet DVT prophylaxis: lovenox Dispo: continues to require inpatient care. HCP is Olu collins, . Full code. Visit type - Emergency Visit Emergency Visit: Yes ED Registration Date: 10/12/17 Care time: The patient presented to the Emergency Department on the above date and was hospitalized for further evaluation of their emergent condition. - New Patient This patient is new to me today: No - Critical Care Critical Care patient: No
[2017-10-14] MEDS ORDERED: LORazepam 0.5 MG TABLET PO ONE ×2 (13:09)
[2017-10-14 13:57] LABS: URINE APPEARANCE CLEAR; URINE BILIRUBIN NEGATIVE (<2.0 mg/dL); URINE COLOR YELLOW; URINE GLUCOSE (UA) 1+ (NEGATIVE); URINE KETONE 1+ (NEGATIVE); URINE LEUK ESTERASE NEGATIVE (NEGATIVE); URINE NITRITE NEGATIVE (NEGATIVE); URINE UROBILINOGEN NEGATIVE mg/dL (0.2-1.0)
[2017-10-14 13:58] LABS: URINE PROTEIN 1+ (NEGATIVE)
[2017-10-14 14:00] LABS: URINE BACTERIA RARE /hpf (NONE SEEN); URINE HYALINE CAST 3 /lpf; URINE MUCUS RARE
[2017-10-14] MEDS ORDERED: HALOPERIDOL LACTATE 5 MG/ML IM STA (15:18)
[2017-10-14] MEDS: MIRTAZAPINE 15 MG TABLET (FP) PO SCH (18:40)
[2017-10-14] MEDS: ATORVASTATIN CA 10 MG TABLET (FP) PO SCH (21:03)
[2017-10-14] MEDS: ACETAMINOPHEN 325 MG TABLET (FP) PO PRN (21:06)
--- NOTE | 2017-10-14 23:11 | PN ---
Progress Note, Physician History of Present Illness: OOB in wheelchair C/O L heel pain Afebrile WBC slightly elevated Tolerating antibiotic - Current Medication List Current Medications: Active Medications Acetaminophen (Tylenol -) 650 mg PO Q6H PRN PRN Reason: PAIN LEVEL 1-5 Last Admin: 10/14/17 21:06 Dose: 650 mg Amlodipine Besylate (Norvasc -) 2.5 mg PO DAILY [facility] Last Admin: 10/14/17 09:51 Dose: 2.5 mg Atenolol (Tenormin -) 25 mg PO DAILY [facility] Last Admin: 10/14/17 09:51 Dose: 25 mg Atorvastatin Calcium (Lipitor -) 10 mg PO HS [facility] Last Admin: 10/14/17 21:03 Dose: 10 mg Enoxaparin Sodium (Lovenox -) 40 mg SQ DAILY [facility] Hydrocortisone (Hytone 1% Cream -) 1 applic TP BID [facility] Last Admin: 10/14/17 21:08 Dose: 1 applic Ceftaroline Fosamil 600 mg/ (Dextrose) 100 mls @ 200 mls/hr IVPB BID [facility]; Protocol Last Admin: 10/14/17 21:02 Dose: 200 mls/hr Levothyroxine Sodium (Synthroid -) 25 mcg PO DAILY@0700 [facility] Last Admin: 10/14/17 06:06 Dose: 25 mcg Mirtazapine (Remeron -) 7.5 mg PO HS [facility] Last Admin: 10/14/17 18:40 Dose: 7.5 mg Venlafaxine HCl (Effexor Xr -) 37.5 mg PO DAILY [facility] Last Admin: 10/14/17 09:54 Dose: 37.5 mg - Objective Vital Signs: Vital Signs Temperature 98.2 F 10/14/17 19:00 Pulse Rate 90 10/14/17 19:00 Respiratory Rate 20 10/14/17 21:00 Blood Pressure 155/100 10/14/17 19:00 O2 Sat by Pulse Oximetry (%) 95 10/14/17 21:00 Neck: Yes: Other (cervical collar in place) Cardiovascular: Yes: Regular Rate and Rhythm Respiratory: Yes: CTA Bilaterally Gastrointestinal: Yes: Normal Bowel Sounds Extremities: Yes: Other (confluent erythema distal L LE. + tender L heel ulcer) Labs: CBC, BMP 10/14/17 07:20 10/14/17 07:20 INR, PTT INR 1.11 (0.83-1.09) H 10/12/17 09:53 Assessment/Plan ? Cellulitis L LE ? vasculitis Continue empiric ceftaroline Skin bx to R/O vasculitis
[2017-10-15] MEDS: LEVOTHYROXINE NA 25 MCG TABLET (FP) PO SCH (06:00)
[2017-10-15 07:51] LABS: HEMATOCRIT 38.2 % (32.4-45.2); HEMOGLOBIN 12.9 GM/dL (10.7-15.3); MCH 28.2 pg (25.7-33.7); MCHC 33.8 g/dl (32.0-36.0); MEAN CELL VOLUME 83.5 fl (80-96); MEAN PLT VOLUME 8.6 fl (7.5-11.1); PLATELET COUNT 290 K/MM3 (134-434); RBC 4.57 M/mm3 (3.60-5.2); RDW 17.5 % (11.6-15.6); WHITE BLOOD COUNT 12.5 K/mm3 (4.0-10.0)
[2017-10-15 08:11] LABS: CHLORIDE 102 mmol/L (98-107); SODIUM 141 mmol/L (136-145)
[2017-10-15 08:23] LABS: ALBUMIN 2.8 g/dl (3.4-5.0); ALK PHOS 87 U/L (45-117); ANION GAP 13 (8-16); BILIRUBIN,TOTAL 0.8 mg/dL (0.2-1.0); BLOOD UREA NITROGEN 9 mg/dL (7-18); CALCIUM 8.6 mg/dL (8.5-10.1); CO2 26 mmol/L (21-32); CREATININE 0.5 mg/dL (0.55-1.02); GLUCOSE,RANDOM 108 mg/dL (74-106); SGOT/AST 40 U/L (15-37); SGPT/ALT 33 U/L (12-78); TOT PROT 6.7 g/dl (6.4-8.2)
[2017-10-15 08:27] LABS: POTASSIUM 2.7 mmol/L (3.5-5.1)
[2017-10-15 08:52] LABS: PLATELET ESTIMATE ADEQUATE
[2017-10-15] MEDS ORDERED: PT OWN MED DRAWER 7, Y5N ONE ×3 (10:35→22:01)
[2017-10-15] MEDS: CEFTAROLINE FOSAMIL ACETATE 600 MG in DEXTROSE 5%-WATER - 100 ML IVPB SCH ×2 (10:37→21:14)
[2017-10-15] MEDS: amLODIPine BESYLATE 2.5 MG TABLET (FP) PO SCH (11:07)
[2017-10-15] MEDS: ATENOLOL 25 MG TABLET (FP) PO SCH (11:07)
[2017-10-15] MEDS: HYDROCORTISONE 1% TOPICAL CREAM 30 GM TUBE TP SCH ×2 (11:07→22:57)
[2017-10-15] MEDS: POTASSIUM CHLORIDE TABS 20 MEQ TABLET.ER (FP) PO SCH ×3 (11:07→21:13)
[2017-10-15] MEDS: VENLAFAXINE HCL 37.5 MG E.R. CAPSULE (FP) PO SCH (11:07)
[2017-10-15] MEDS: ENOXAPARIN NA (PORCINE) 40 MG/0.4 ML DISP.SYRIN SQ SCH (11:08)
--- NOTE | 2017-10-15 12:26 | CON.PSY ---
Psychiatry Consult Chief Complaint: Asked to see this patient an 86 year old female for agitation, and confusion. History of Present Problem: Patient was found confused sitting next to the nurses' station \, family at her side According to the family and nurse, patient is is less agitated today as compared to yesterday. Patient received remeron 7.5 mgs q hs last night and slept well as compared to the previous night. Patient's son related that his mother was fully alert oriented x3 with clear sensorium prior to this hospitalization. Patient is alert to name only, confused to time place person and situation Dx\Delirium- toxic/Metabolic- Infection Avoid benzo Continue remeron q hs 7.5 mg Haldol po prn Family is arranging for a sitter frequent orientation by staff. - Current Medications Current Medications: Active Medications Acetaminophen (Tylenol -) 650 mg PO Q6H PRN PRN Reason: PAIN LEVEL 1-5 Last Admin: 10/14/17 21:06 Dose: 650 mg Amlodipine Besylate (Norvasc -) 2.5 mg PO DAILY [facility] Last Admin: 10/15/17 11:07 Dose: Not Given Atenolol (Tenormin -) 25 mg PO DAILY [facility] Last Admin: 10/15/17 11:07 Dose: Not Given Atorvastatin Calcium (Lipitor -) 10 mg PO HS [facility] Last Admin: 10/14/17 21:03 Dose: 10 mg Enoxaparin Sodium (Lovenox -) 40 mg SQ DAILY [facility] Last Admin: 10/15/17 11:08 Dose: 40 mg Hydrocortisone (Hytone 1% Cream -) 1 applic TP BID [facility] Last Admin: 10/15/17 11:07 Dose: 1 applic Ceftaroline Fosamil 600 mg/ (Dextrose) 100 mls @ 200 mls/hr IVPB BID [facility]; Protocol Last Admin: 10/15/17 10:37 Dose: 200 mls/hr Levothyroxine Sodium (Synthroid -) 25 mcg PO DAILY@0700 [facility] Last Admin: 10/15/17 06:00 Dose: 25 mcg Mirtazapine (Remeron -) 7.5 mg PO HS [facility] Last Admin: 10/14/17 18:40 Dose: 7.5 mg Potassium Chloride (K-Dur -) 40 meq PO Q6H [facility] Stop: 10/15/17 20:46 Last Admin: 10/15/17 11:07 Dose: Not Given Venlafaxine HCl (Effexor Xr -) 37.5 mg PO DAILY [facility] Last Admin: 10/15/17 11:07 Dose: Not Given - Allergies Allergies: Allergies Allergy/AdvReac Type Severity Reaction Status Date / Time No Known Allergies Allergy Verified 10/12/17 08:30
--- NOTE | 2017-10-15 12:27 | CONSULT ---
Consult - text type - Consultation Consultation Note: NEUROSURGERY CONSULTATION Patient is an 86 year old female who fell down and struck her head. She remains at her Neurological baseline. She sustained a C2 and C3 fracture which are non- displaced. She has neck pain, however, attributed some of this to her transport collar. After placing her in a [place] J collar, she had diminished pain. These fractures should heal with immobilization in this collar for 3 months. Patient has a history of intermittent Right facial weakness and gustatory changes for many years. Head CT did not reveal any concerning traumatic injury, however, there is a small, calcified meningioma over her Left Central sulcus which may account for these symptoms which are not typical for Arguelles's Palsy. Case discussed in detail with patient and brother. Plan - C collar for 3 months then followup in my office (closed management of C2 and C3 fractures). - No need for further treatment of the Left convexity meningioma at this time - No restrictions on discharge (home v. SNF based upon patient safety requirements) from Neurosurgery standpoint. - Management of leg cellulitis/vasculitis per ID and Medicine
[2017-10-15] MEDS ORDERED: HALOPERIDOL 1 MG TABLET (FP) PO PRN (12:33)
--- NOTE | 2017-10-15 12:43 | PN ---
Physical Exam: SUBJECTIVE: Patient seen and examined at bedside. Delirious, talking to , but not combative today. OBJECTIVE: Vital Signs Period Temp Pulse Resp BP Sys/Dinh Pulse Ox Last 24 Hr 97.3 F-98.9 F 80-98 20-20 106-164/95-100 94-95 GENERAL: The patient is awake, oriented to person and year but not to place. Insists she is in [facility] in the [place]. HEAD: C-collar in place LUNGS: Breath sounds equal, clear to auscultation bilaterally, no wheezes, no crackles, no accessory muscle use. HEART: Regular rate and rhythm, S1, S2 ABDOMEN: Soft, nontender, nondistended : gibson in place Laboratory Results - last 24 hr 10/14/17 10/15/17 10/15/17 13:00 07:31 07:31 WBC 12.5 H RBC 4.57 Hgb 12.9 Hct 38.2 MCV 83.5 MCH 28.2 MCHC 33.8 RDW 17.5 H Plt Count 290 MPV 8.6 Absolute Neuts (auto) 8.8 Total Counted 100 Neutrophils % No Result Required. Neutrophils % (Manual) 75.0 Lymphocytes % No Result Required. Lymphocytes % (Manual) 6.0 L Monocytes % (Manual) 18 H D Eosinophils % (Manual) 1.0 D Nucleated RBC % 0 Platelet Estimate Adequate Platelet Comment No clumping noted Sodium 141 Potassium 2.7 L* Chloride 102 Carbon Dioxide 26 Anion Gap 13 BUN 9 Creatinine 0.5 L Creat Clearance w eGFR > 60 Random Glucose 108 H Calcium 8.6 Magnesium 2.0 Total Bilirubin 0.8 AST 40 H ALT 33 Alkaline Phosphatase 87 Total Protein 6.7 Albumin 2.8 L Urine Color Yellow Urine Appearance Clear Urine pH 6.0 Ur Specific [place] 1.014 Urine Protein 1+ H Urine Glucose (UA) 1+ H Urine Ketones 1+ H Urine Blood 1+ H Urine Nitrite Negative Urine Bilirubin Negative Urine Urobilinogen Negative Ur Leukocyte Esterase Negative Urine WBC (Auto) 1 Urine RBC (Auto) 4 Urine Bacteria Rare Hyaline Casts 3 Urine Mucus Rare Active Medications Generic Name Dose Route Start Last Admin Trade Name Freq PRN Reason Stop Dose Admin Acetaminophen 650 mg 10/12/17 14:52 10/14/17 21:06 Tylenol - PO 650 mg Q6H PRN Administration PAIN LEVEL 1-5 Amlodipine Besylate 2.5 mg 10/12/17 20:15 10/15/17 11:07 Norvasc - PO Not Given DAILY [facility] Atenolol 25 mg 10/12/17 20:00 10/15/17 11:07 Tenormin - PO Not Given DAILY [facility] Atorvastatin Calcium 10 mg 10/12/17 22:00 10/14/17 21:03 Lipitor - PO 10 mg HS [facility] Administration Enoxaparin Sodium 40 mg 10/15/17 10:00 10/15/17 11:08 Lovenox - SQ 40 mg DAILY [facility] Administration Haloperidol 2 mg 10/15/17 12:33 Haldol - PO BID PRN AGITATION Hydrocortisone 1 applic 10/13/17 13:45 10/15/17 11:07 Hytone 1% Cream - TP 1 applic BID [facility] Administration Ceftaroline Fosamil 600 mg/ 100 mls @ 200 mls/hr 10/13/17 13:45 10/15/17 10: 37 Dextrose IVPB 200 mls/hr BID [facility] Administration Protocol Levothyroxine Sodium 25 mcg 10/13/17 07:00 10/15/17 06:00 Synthroid - PO 25 mcg DAILY@0700 [facility] Administration Mirtazapine 7.5 mg 10/14/17 17:45 10/14/17 18:40 Remeron - PO 7.5 mg HS [facility] Administration Potassium Chloride 40 meq 10/15/17 08:45 10/15/17 11:07 K-Dur - PO 10/15/17 20:46 Not Given Q6H [facility] Venlafaxine HCl 37.5 mg 10/12/17 20:00 10/15/17 11:07 Effexor Xr - PO Not Given DAILY [facility] 10/12 CT c-spine: nondiscplaced fracture right lateral mass of C2 and left lamina C3 10/12 CT head: no acute process; left frontal lobe 1.2cm calcified meningioma; mild soft tissue swelling of scalp over right posterior parietal bone ASSESSMENT/PLAN 86 year-old female with a PMH significant for HTN, HLD, and hypothyroidism. Admitted for c-spine fracture following mechanical fall. Cervical spine fracture --closed management of C2 and C3 fractures --will need C collar for 3 months then followup with Dr. Choudhury in his office --no restrictions on discharge from neurosurgery standpoint. Left frontal lobe meningioma --discussed with brother HCP, he agrees with Dr. Choudhury no further treatment LLE Cellulitis v. vasculitis --erythema and tenderness slightly worse today --unable to get either derm or vascular to see patient over the weekend, will need to wait for Monday --continue ceftaroline, topical hydrocortisone --ID following Delirium --onset of acute altered mental status 48 hours ago; family denies any previous episodes of this type, denies h/o dementia --not as combative today but confused, talking to --seen and evaluated by psych: avoid benzos; continue remeron at night, PO haldol PRN (less effect on QT interval than injected formulation) Urinary retention --10/14: significant bladder distension; placed gibson-->1,000cc's output --US renal, bladder pending --two negative urine cultures (first negative culture was before antibiotics) Hypertension --BP elevated --inrease amlodipine to 5mg, increase atenolol to 50mg Hypothyroidism --TSH wnl --continue levothyroxine FEN Fluids: PO intake adequate Electrolytes: replete as indicated Nutrition: regular diet DVT prophylaxis: lovenox Dispo: continues to require inpatient care. HCP is brother, Olu Naidu, . Full code. Visit type - Emergency Visit Emergency Visit: Yes ED Registration Date: 10/12/17 Care time: The patient presented to the Emergency Department on the above date and was hospitalized for further evaluation of their emergent condition. - New Patient This patient is new to me today: No - Critical Care Critical Care patient: No
[2017-10-15] MEDS ORDERED: amLODIPine BESYLATE 2.5 MG TABLET (FP) PO SCH (12:53)
[2017-10-15] MEDS ORDERED: amLODIPine BESYLATE 2.5 MG TABLET (FP) PO ONE (12:54)
[2017-10-15] MEDS: ATORVASTATIN CA 10 MG TABLET (FP) PO SCH (21:13)
[2017-10-15] MEDS: MIRTAZAPINE 15 MG TABLET (FP) PO SCH (21:13)
[2017-10-16] MEDS: LEVOTHYROXINE NA 25 MCG TABLET (FP) PO SCH (06:12)
[2017-10-16 07:08] LABS: BASO % 0.3 % (0-2.0); EOS % 0.7 % (0-4.5); HEMATOCRIT 36.9 % (32.4-45.2); HEMOGLOBIN 12.6 GM/dL (10.7-15.3); LYMPH % 11.5 % (8-40); MCH 28.5 pg (25.7-33.7); MEAN CELL VOLUME 83.7 fl (80-96); MEAN PLT VOLUME 8.8 fl (7.5-11.1); MONO % 26.1 % (3.8-10.2); NEUT % 61.4 % (42.8-82.8); PLATELET COUNT 328 K/MM3 (134-434); RBC 4.41 M/mm3 (3.60-5.2); RDW 17.3 % (11.6-15.6); WHITE BLOOD COUNT 10.9 K/mm3 (4.0-10.0)
[2017-10-16 07:58] LABS: CHLORIDE 104 mmol/L (98-107); SODIUM 144 mmol/L (136-145)
[2017-10-16 08:06] LABS: ALBUMIN 2.7 g/dl (3.4-5.0); ALK PHOS 79 U/L (45-117); ANION GAP 13 (8-16); BILIRUBIN,TOTAL 0.7 mg/dL (0.2-1.0); BLOOD UREA NITROGEN 18 mg/dL (7-18); CALCIUM 8.7 mg/dL (8.5-10.1); CO2 27 mmol/L (21-32); CREATININE 0.6 mg/dL (0.55-1.02); GLUCOSE,RANDOM 110 mg/dL (74-106); MAGNESIUM 2.1 mg/dL (1.8-2.4); SGOT/AST 43 U/L (15-37); SGPT/ALT 37 U/L (12-78); TOT PROT 6.4 g/dl (6.4-8.2)
[2017-10-16 08:28] LABS: POTASSIUM 2.9 mmol/L (3.5-5.1)
--- NOTE | 2017-10-16 09:01 | PN ---
Physical Exam: SUBJECTIVE: Patient seen and examined at bedside. Delirium continues. OBJECTIVE: Vital Signs Period Temp Pulse Resp BP Sys/Dinh Pulse Ox Last 24 Hr 97.3 F-98.7 F 80-98 20-22 125-185/88-102 GENERAL: The patient is awake, oriented to person and year but not to place HEAD: C-collar in place LUNGS: Breath sounds equal, clear to auscultation bilaterally, no wheezes, no crackles, no accessory muscle use. HEART: Regular rate and rhythm, S1, S2 ABDOMEN: Soft, nontender, nondistended : gibson in place Laboratory Results - last 24 hr 10/16/17 10/16/17 06:10 06:10 WBC 10.9 H RBC 4.41 Hgb 12.6 Hct 36.9 MCV 83.7 MCH 28.5 MCHC 34.0 RDW 17.3 H Plt Count 328 MPV 8.8 Absolute Neuts (auto) 6.7 Neutrophils % 61.4 D Lymphocytes % 11.5 D Monocytes % 26.1 H Eosinophils % 0.7 Basophils % 0.3 Nucleated RBC % 0 Sodium 144 Potassium 2.9 L* Chloride 104 Carbon Dioxide 27 Anion Gap 13 BUN 18 Creatinine 0.6 Creat Clearance w eGFR > 60 Random Glucose 110 H Calcium 8.7 Magnesium 2.1 Total Bilirubin 0.7 AST 43 H ALT 37 Alkaline Phosphatase 79 Total Protein 6.4 Albumin 2.7 L Active Medications Generic Name Dose Route Start Last Admin Trade Name Freq PRN Reason Stop Dose Admin Acetaminophen 650 mg 10/12/17 14:52 10/14/17 21:06 Tylenol - PO 650 mg Q6H PRN Administration PAIN LEVEL 1-5 Amlodipine Besylate 5 mg 10/16/17 10:00 Norvasc - PO DAILY ALLYN Atenolol 50 mg 10/16/17 10:00 Tenormin - PO DAILY ALLYN Atorvastatin Calcium 10 mg 10/12/17 22:00 10/15/17 21:13 Lipitor - PO Not Given HS ALLYN Enoxaparin Sodium 40 mg 10/15/17 10:00 10/15/17 11:08 Lovenox - SQ 40 mg DAILY ALL[facility] Administration Haloperidol 2 mg 10/15/17 12:33 Haldol - PO BID PRN AGITATION Hydrocortisone 1 applic 10/13/17 13:45 10/15/17 22:57 Hytone 1% Cream - TP 1 applic BID ALLYN Administration Ceftaroline Fosamil 600 mg/ 100 mls @ 200 mls/hr 10/13/17 13:45 10/15/17 21: 14 Dextrose IVPB 200 mls/hr BID ALLYN Administration Protocol Levothyroxine Sodium 25 mcg 10/13/17 07:00 10/16/17 06:12 Synthroid - PO 25 mcg DAILY@0700 [facility] Administration Mirtazapine 15 mg 10/16/17 22:00 Remeron - PO HS ALLYN Potassium Chloride 40 meq 10/16/17 09:00 K-Dur - PO 10/16/17 15:01 Q6H ALLYN Venlafaxine HCl 37.5 mg 10/12/17 20:00 10/15/17 11:07 Effexor Xr - PO Not Given DAILY [facility] ASSESSMENT/PLAN Imaging 10/12 CT c-spine: nondiscplaced fracture right lateral mass of C2 and left lamina C3 10/12 CT head: no acute process; left frontal lobe 1.2cm calcified meningioma; mild soft tissue swelling of scalp over right posterior parietal bone ASSESSMENT/PLAN 86 year-old female with a PMH significant for HTN, HLD, and hypothyroidism. Admitted for c-spine fracture following mechanical fall. Cervical spine fracture --closed management of C2 and C3 fractures --will need C collar for 3 months then followup with Dr. Choudhury in his office --no restrictions on discharge from neurosurgery standpoint. Left frontal lobe meningioma --discussed with brother HCP, he agrees with Dr. Choudhury no further treatment LLE cellulitis v. vasculitis --erythema and tenderness unchanged --spoke with senior property accountant Dr. Bo, will come tomorrow for skin biopsy --rheum consult placed --continue ceftaroline, topical hydrocortisone --ID following Delirium --onset of acute altered mental status during hospital stay --seen and evaluated by psych: avoid benzos; continue remeron at night, PO haldol PRN (less effect on QT interval than injected formulation) Urinary retention --10/14: significant bladder distension; placed gibson-->1,000cc's output --US renal, bladder: unremarkable but empty bladder so could no assess pvr --two negative urine cultures (first negative culture was before antibiotics) Hypertension --BP elevated --inrease amlodipine to 10mg, switch atenolol to Toprol XL 25mg ID Hypothyroidism --TSH wnl --continue levothyroxine FEN Fluids: PO intake adequate Electrolytes: replete as indicated Nutrition: dysphagia minced, nectar thick, Magic Cup, Ensure Pudding, Ensure Compact DVT prophylaxis: lovenox Dispo: continues to require inpatient care. HCP is Olu collins, . Full code. Visit type - Emergency Visit Emergency Visit: Yes ED Registration Date: 10/12/17 Care time: The patient presented to the Emergency Department on the above date and was hospitalized for further evaluation of their emergent condition. - New Patient This patient is new to me today: No - Critical Care Critical Care patient: Yes Total Critical Care Time (in minutes): 45 Critical Care Statement: The care of this patient involved high complexity decision making to prevent further life threatening deterioration of the patient 's condition and/or to evaluate & treat vital organ system(s) failure or risk of failure.
[2017-10-16] MEDS ORDERED: KCL 10 MEQ IVPB 10 MEQ/100 ML INFUS.BAG IVPB SCH (09:15)
[2017-10-16] MEDS: POTASSIUM CHLORIDE TABS 20 MEQ TABLET.ER (FP) PO SCH ×2 (09:52→17:26)
[2017-10-16] MEDS ORDERED: PT OWN MED DRAWER 7, Y5N ONE ×2 (09:55→21:19)
[2017-10-16] MEDS: HYDROCORTISONE 1% TOPICAL CREAM 30 GM TUBE TP SCH ×2 (09:58→21:43)
[2017-10-16] MEDS: ENOXAPARIN NA (PORCINE) 40 MG/0.4 ML DISP.SYRIN SQ SCH (09:58)
[2017-10-16] MEDS: VENLAFAXINE HCL 37.5 MG E.R. CAPSULE (FP) PO SCH (09:59)
[2017-10-16] MEDS ORDERED: ATENOLOL 25 MG TABLET (FP) PO SCH (10:00)
[2017-10-16] MEDS: CEFTAROLINE FOSAMIL ACETATE 600 MG in DEXTROSE 5%-WATER - 100 ML IVPB SCH ×2 (10:00→21:43)
[2017-10-16] MEDS ORDERED: POTASSIUM CHLORIDE 20 MEQ in SODIUM CHLORIDE 250 ML IVPB ONE (10:00)
[2017-10-16] MEDS ORDERED: amLODIPine BESYLATE 2.5 MG TABLET (FP) PO SCH (10:00)
[2017-10-16] MEDS ORDERED: POTASSIUM CHLORIDE 10 MEQ in SODIUM CHLORIDE 100 ML IVPB ONE (12:00)
[2017-10-16 12:21] LABS: ANISOCYTOSIS 1+; MACROCYTOSIS 0; PLATELET ESTIMATE NORMAL
--- NOTE | 2017-10-16 15:39 | CONSULT ---
Admitting History and Physical - Primary Care Physician PCP: Aziza Varma - Admission History of Present Illness: ASSESSMENT/PLAN 86 year-old female with a PMH significant for HTN and hypothyroidism. Admitted for c-spine fracture following mechanical fall. 10/12 CT c-spine: nondiscplaced fracture right lateral mass of C2 and left lamina C3 10/12 CT head: no acute process; left frontal lobe 1.2cm calcified meningioma; mild soft tissue swelling of scalp over right posterior parietal bone Selected Entries 10/15/17 10/15/17 10/15/17 06:19 10:00 16:38 Breakfast 75% Lunch 75% Supper Temperature 98.4 F 97.3 F L 98.7 F 10/15/17 10/15/17 10/16/17 20:00 21:43 02:00 Breakfast Lunch Supper 0 Temperature 98.2 F 97.5 F L 10/16/17 10/16/17 05:30 14:00 Breakfast 25% Lunch 0 Supper Temperature 98.5 F Laboratory Tests 10/14/17 10/15/17 10/16/17 07:20 07:31 06:10 WBC 14.6 H 12.5 H 10.9 H History Source: Medical Record Limitations to Obtaining History: Clinical Condition - Past Medical History ...: No - Advance Directives Advance Directives: Yes: Living Will, Health Care Proxy - Smoking History Smoking history: Never smoked Have you smoked in the past 12 months: No - Alcohol/Substance Use Hx Alcohol Use: No History - Admission Reason For Visit: CELLULITIS, FRACTURE OF CERVICAL VERTEBRA - Diagnostics X-ray: Report Reviewed CT Scan: Report Reviewed - General Mental Status: Awake and Alert, Combative (verbally), Confused (Delerium, per Psych) Attention: Intact Ability to Follow Directions: Fair Head/Neck Control: Needs Assist (neck brace) - Hearing Hearing: Impaired, Right Ear Hearing Aide: Yes With Patient: No Speech Evaluation - Communication Primary Language: GERMAN Communication: Yes: Within Normal Limits Oral Expression Ability: Yes: No Impairment - Speech Production Able to Make Needs Known: Yes: WNL Intelligibility: Yes: WNL - Speech Characteristics Voice Loudness: Normal Voice Pitch: Yes: Normal Voice Phonatory-based Quality: Yes: Normal Speech Pattern: Normal Speech Clarity: < 100% Nasal Resonance: Normal Articulation: Yes: Precise - Language/Verbal Expression Able to Respond to Simple Queries: Yes: WNL Able to Communicate Wants and Needs: Yes: WNL Functional Communication Status: Yes: WNL - Swallow Evaluation/Bedside Assessment Current Nutritional Intake: Regular, Thin Liquids Oral Secretions: Yes: WFL Facial Symmetry at Rest: Facial Droop Left Facial Symmetry on Retraction: Facial Droop Left Lingual Movement: Normal, Symmetric Lingual Speed of Movement: Normal Lingual Movement Strgth Against Opposition: Normal Lingual Movement Characteristics: Normal Velopharyngeal Movement: Normal Recommendations - Speech Evaluation, Impression/Plan Impression: Confused. Verbally combative. Adamently refused PO trial for me. [employer] reported cough response with OJ and difficulty chewing. Tolerated hot cereal this am.Pt has neck brace, which may adversely affect swallowing function and laryngeal excursion. - Dysphagia Impressions/Plan Dysphagia Impressions: Risk of Aspiration, Refused PO Trials Dysphagia Treatment Plan: Chin Tuck/Down (as tolerated. Can brace be removed for meals?), 1/2 tsp. at a time, Elevate HOB during feed - Recommendations Diet Consistency: Dysphagia Minced Liquids: [place] Thick Supplement: Magic Cup, Ensure Pudding, Other (Ensure Compact.)
[2017-10-16] MEDS ORDERED: metoPROLOL SUCCINATE 25 MG TAB.SR.24H (FP) PO STA ×2 (17:56→18:23)
[2017-10-16 20:21] LABS: ANION GAP 11 (8-16); BLOOD UREA NITROGEN 19 mg/dL (7-18); CALCIUM 8.7 mg/dL (8.5-10.1); CHLORIDE 112 mmol/L (98-107); CO2 25 mmol/L (21-32); CREATININE 0.7 mg/dL (0.55-1.02); GLUCOSE,RANDOM 154 mg/dL (74-106); MAGNESIUM 2.2 mg/dL (1.8-2.4); POTASSIUM 4.3 mmol/L (3.5-5.1); SODIUM 148 mmol/L (136-145)
[2017-10-16] MEDS: ATORVASTATIN CA 10 MG TABLET (FP) PO SCH (21:42)
[2017-10-16] MEDS ORDERED: MIRTAZAPINE 15 MG TABLET (FP) PO SCH (22:00)
[2017-10-16] MEDS: metoPROLOL SUCCINATE 25 MG TAB.SR.24H (FP) PO SCH (22:09)
[2017-10-17] MEDS: LEVOTHYROXINE NA 25 MCG TABLET (FP) PO SCH (06:07)
[2017-10-17 08:08] LABS: BASO % 0.4 % (0-2.0); EOS % 2.1 % (0-4.5); HEMATOCRIT 35.6 % (32.4-45.2); LYMPH % 12.2 % (8-40); MCH 28.4 pg (25.7-33.7); MCHC 33.6 g/dl (32.0-36.0); MEAN CELL VOLUME 84.5 fl (80-96); MONO % 21.9 % (3.8-10.2); NEUT % 63.4 % (42.8-82.8); PLATELET COUNT 296 K/MM3 (134-434); RBC 4.21 M/mm3 (3.60-5.2); RDW 17.7 % (11.6-15.6); WHITE BLOOD COUNT 9.1 K/mm3 (4.0-10.0)
[2017-10-17 08:17] LABS: CHLORIDE 110 mmol/L (98-107); POTASSIUM 3.6 mmol/L (3.5-5.1); SODIUM 147 mmol/L (136-145)
[2017-10-17 08:33] LABS: ALBUMIN 2.7 g/dl (3.4-5.0); ALK PHOS 70 U/L (45-117); ANION GAP 9 (8-16); BILIRUBIN,TOTAL 0.4 mg/dL (0.2-1.0); BLOOD UREA NITROGEN 17 mg/dL (7-18); CALCIUM 8.6 mg/dL (8.5-10.1); CO2 28 mmol/L (21-32); CREATININE 0.6 mg/dL (0.55-1.02); GLUCOSE,RANDOM 119 mg/dL (74-106); MAGNESIUM 2.2 mg/dL (1.8-2.4); SGOT/AST 30 U/L (15-37); SGPT/ALT 37 U/L (12-78)
--- NOTE | 2017-10-17 10:09 | PN ---
Physical Exam: SUBJECTIVE: Patient seen and examined at bedside. OBJECTIVE: Vital Signs Period Temp Pulse Resp BP Sys/Dinh Pulse Ox Last 24 Hr 98.8 F-99.6 F 75-80 20-21 148-166/86-116 96 GENERAL: The patient is sleepy but arousable. Appears overly sedated. HEAD: C-collar in place LUNGS: Breath sounds equal, clear to auscultation bilaterally, no wheezes, no crackles, no accessory muscle use. HEART: Regular rate and rhythm, S1, S2 ABDOMEN: Soft, nontender, nondistended : gibson in place Laboratory Results - last 24 hr 10/16/17 10/16/17 10/17/17 06:10 19:25 06:30 WBC 9.1 RBC 4.21 Hgb 12.0 Hct 35.6 MCV 84.5 MCH 28.4 MCHC 33.6 RDW 17.7 H Plt Count 296 MPV 9.0 Absolute Neuts (auto) 5.7 Neutrophils % 63.4 Neutrophils % (Manual) 73.0 Band Neutrophils % 0.0 Lymphocytes % 12.2 Lymphocytes % (Manual) 10.0 D Monocytes % 21.9 H Monocytes % (Manual) 14 H Eosinophils % 2.1 D Eosinophils % (Manual) 0.0 D Basophils % 0.4 Basophils % (Manual) 0.0 Myelocytes % (Man) 2 D Promyelocytes % (Man) 0 Blast Cells % (Manual) 0 Nucleated RBC % 0 0 Metamyelocytes 0 Hypochromia 0 Platelet Estimate Normal Polychromasia 0 Poikilocytosis 0 Anisocytosis 1+ Microcytosis 0 Macrocytosis 0 Sodium 148 H Potassium 4.3 Chloride 112 H Carbon Dioxide 25 Anion Gap 11 BUN 19 H Creatinine 0.7 Creat Clearance w eGFR > 60 Random Glucose 154 H Calcium 8.7 Magnesium 2.2 Total Bilirubin AST ALT Alkaline Phosphatase Total Protein Albumin 10/17/17 06:30 WBC RBC Hgb Hct MCV MCH MCHC RDW Plt Count MPV Absolute Neuts (auto) Neutrophils % Neutrophils % (Manual) Band Neutrophils % Lymphocytes % Lymphocytes % (Manual) Monocytes % Monocytes % (Manual) Eosinophils % Eosinophils % (Manual) Basophils % Basophils % (Manual) Myelocytes % (Man) Promyelocytes % (Man) Blast Cells % (Manual) Nucleated RBC % Metamyelocytes Hypochromia Platelet Estimate Polychromasia Poikilocytosis Anisocytosis Microcytosis Macrocytosis Sodium 147 H Potassium 3.6 Chloride 110 H Carbon Dioxide 28 Anion Gap 9 BUN 17 Creatinine 0.6 Creat Clearance w eGFR > 60 Random Glucose 119 H Calcium 8.6 Magnesium 2.2 Total Bilirubin 0.4 AST 30 ALT 37 Alkaline Phosphatase 70 Total Protein 6.0 L Albumin 2.7 L Active Medications Generic Name Dose Route Start Last Admin Trade Name Freq PRN Reason Stop Dose Admin Acetaminophen 650 mg 10/12/17 14:52 10/14/17 21:06 Tylenol - PO 650 mg Q6H PRN Administration PAIN LEVEL 1-5 Amlodipine Besylate 10 mg 10/17/17 10:00 Norvasc - PO DAILY ALLYN Atorvastatin Calcium 10 mg 10/12/17 22:00 10/16/17 21:42 Lipitor - PO 10 mg HS ALLYN Administration Enoxaparin Sodium 40 mg 10/15/17 10:00 10/16/17 09:58 Lovenox - SQ 40 mg DAILY ALLYN Administration Haloperidol 2 mg 10/15/17 12:33 10/16/17 09:57 Haldol - PO 2 mg BID PRN Administration AGITATION Hydrocortisone 1 applic 10/13/17 13:45 10/16/17 21:43 Hytone 1% Cream - TP 1 applic BID ALLYN Administration Ceftaroline Fosamil 600 mg/ 100 mls @ 200 mls/hr 10/13/17 13:45 10/16/17 21: 43 Dextrose IVPB 200 mls/hr BID ALLYN Administration Protocol Levothyroxine Sodium 25 mcg 10/13/17 07:00 10/17/17 06:07 Synthroid - PO 25 mcg DAILY@0700 ALLYN Administration Metoprolol Succinate 25 mg 10/16/17 22:00 10/16/17 22:09 Toprol Xl - PO 25 mg BID ALLYN Administration Mirtazapine 15 mg 10/16/17 22:00 10/16/17 21:42 Remeron - PO 15 mg HS ALLYN Administration Tamsulosin HCl 0.4 mg 10/18/17 08:30 Flomax - PO DAILY@0830 [facility] Venlafaxine HCl 37.5 mg 10/12/17 20:00 10/16/17 09:59 Effexor Xr - PO 37.5 mg DAILY ALLYN Administration Imaging 10/12 CT c-spine: nondiscplaced fracture right lateral mass of C2 and left lamina C3 10/12 CT head: no acute process; left frontal lobe 1.2cm calcified meningioma; mild soft tissue swelling of scalp over right posterior parietal bone ASSESSMENT/PLAN 86 year-old female with a PMH significant for HTN, HLD, and hypothyroidism. Admitted for c-spine fracture following mechanical fall. Cervical spine fracture --closed management of C2 and C3 fractures --will need C collar for 3 months then followup with Dr. Choudhury in his office --no restrictions on discharge from neurosurgery standpoint. Left frontal lobe meningioma --discussed with brother FRANC, he agrees with Dr. Choudhury no further treatment LLE cellulitis v. vasculitis --erythema and tenderness unchanged --skin biopsy later today with Dr. Bo; consent in chart --rheum consult placed --continue ceftaroline, topical hydrocortisone --ID following Delirium --onset of acute altered mental status during hospital stay --seen and evaluated by psych: avoid benzos; continue remeron at night, PO haldol PRN (less effect on QT interval than injected formulation) Urinary retention --10/14: significant bladder distension; placed gibson-->1,000cc's output --US renal, bladder: unremarkable but empty bladder so could no assess pvr --two negative urine cultures (first negative culture was before antibiotics) Hypertension --continue increased amlodipine 10mg, Toprol XL 50mg ID Hypothyroidism --TSH wnl --continue levothyroxine FEN Fluids: PO intake adequate Electrolytes: replete as indicated Nutrition: dysphagia minced, nectar thick, Magic Cup, Ensure Pudding, Ensure Compact DVT prophylaxis: lovenox Dispo: continues to require inpatient care. HCP is Olu ocllins, . Full code. Visit type - Emergency Visit Emergency Visit: Yes ED Registration Date: 10/12/17 Care time: The patient presented to the Emergency Department on the above date and was hospitalized for further evaluation of their emergent condition. - New Patient This patient is new to me today: No - Critical Care Critical Care patient: Yes Total Critical Care Time (in minutes): 35 Critical Care Statement: The care of this patient involved high complexity decision making to prevent further life threatening deterioration of the patient 's condition and/or to evaluate & treat vital organ system(s) failure or risk of failure.
[2017-10-17] MEDS: metoPROLOL SUCCINATE 25 MG TAB.SR.24H (FP) PO SCH (10:26)
[2017-10-17] MEDS: amLODIPine BESYLATE 10 MG TABLET (FP) PO SCH (10:26)
[2017-10-17] MEDS: HYDROCORTISONE 1% TOPICAL CREAM 30 GM TUBE TP SCH ×2 (10:27→23:56)
[2017-10-17] MEDS: VENLAFAXINE HCL 37.5 MG E.R. CAPSULE (FP) PO SCH (10:29)
[2017-10-17] MEDS: ENOXAPARIN NA (PORCINE) 40 MG/0.4 ML DISP.SYRIN SQ SCH (10:30)
[2017-10-17 12:12] LABS: ANISOCYTOSIS 1+; MACROCYTOSIS 1+; PLATELET ESTIMATE NORMAL
--- NOTE | 2017-10-17 12:37 | PN ---
Progress Note, FACILITY WORKER - Note Progress Note: Pt on dys minced/nectar liquids Selected Entries 10/16/17 10/16/17 10/16/17 02:00 05:30 09:00 Breakfast Supper Temperature 97.5 F L 98.5 F 98.4 F 10/16/17 10/16/17 10/16/17 14:00 18:30 22:09 Breakfast 25% Supper 25% Temperature 99.6 F 10/17/17 06:00 Breakfast Supper Temperature 98.8 F Laboratory Tests 10/17/17 06:30 WBC 9.1 Sleepy today, nurse feels sec to Remeron. Tolerated breakfast but back to sleep.
[2017-10-17] MEDS: CEFTAROLINE FOSAMIL ACETATE 600 MG in DEXTROSE 5%-WATER - 100 ML IVPB SCH ×2 (13:00→23:57)
--- NOTE | 2017-10-17 15:52 | PN ---
Progress Note (short form) - Note Progress Note: layin bed with collar Vital Signs Period Temp Pulse Resp BP Sys/Dinh Pulse Ox Last 24 Hr 97.7 F-99.6 F 63-80 17-21 125-180/58-116 96 less erythema of the leg- still painful CBC, BMP 10/17/17 06:30 10/17/17 06:30 Laboratory Tests 10/13/17 10/13/17 18:00 18:00 ESR 92 H C-Reactive Protein 23.3 H Microbiology 10/12/17 09:53 Blood - Peripheral Venous Blood Culture - Final NO GROWTH AFTER 5 DAYS INCUBATION 10/12/17 09:53 Blood - Peripheral Venous Blood Culture - Final NO GROWTH AFTER 5 DAYS INCUBATION 10/14/17 13:00 Urine - Urine - Catheterized Urine Culture - Final NO GROWTH OBTAINED 10/12/17 11:20 Urine - Urine Clean Catch Urine Culture - Final a/p not sure this is cellulitis- ?vasculitis too painful, doubt vascular she has a good pulse continue ceftaroline, I think her leg has improved a little agree with derm and rheum eval wbc now normal repeat esr/crp Problem List - Problems (1) Cellulitis Code(s): L03.90 - CELLULITIS, UNSPECIFIED Qualifiers: Site of cellulitis: extremity Site of cellulitis of extremity: lower extremity Laterality: left Qualified Code(s): L03.116 - Cellulitis of left lower limb (2) Cervical spine fracture Code(s): S12.9XXA - FRACTURE OF NECK, UNSPECIFIED, INITIAL ENCOUNTER Qualifiers: Encounter type: initial encounter Cervical vertebra fracture level: C2 Fracture type: closed Fracture morphology: unspecified fracture morphology Fracture alignment: nondisplaced Qualified Code(s): S12.101A - Unspecified nondisplaced fracture of second cervical vertebra, initial encounter for closed fracture
[2017-10-17] MEDS: ATORVASTATIN CA 10 MG TABLET (FP) PO SCH (23:55)
[2017-10-17] MEDS: MIRTAZAPINE 15 MG TABLET (FP) PO SCH (23:56)
[2017-10-18] MEDS ORDERED: PT OWN MED DRAWER 7, Y5N ONE ×3 (05:56→20:50)
[2017-10-18] MEDS: LEVOTHYROXINE NA 25 MCG TABLET (FP) PO SCH (06:45)
[2017-10-18 08:10] LABS: BASO % 0.4 % (0-2.0); EOS % 3.9 % (0-4.5); HEMATOCRIT 35.4 % (32.4-45.2); HEMOGLOBIN 11.9 GM/dL (10.7-15.3); LYMPH % 12.9 % (8-40); MCH 28.6 pg (25.7-33.7); MCHC 33.7 g/dl (32.0-36.0); MEAN CELL VOLUME 84.9 fl (80-96); MEAN PLT VOLUME 8.8 fl (7.5-11.1); MONO % 16.1 % (3.8-10.2); NEUT % 66.7 % (42.8-82.8); PLATELET COUNT 300 K/MM3 (134-434); RBC 4.17 M/mm3 (3.60-5.2); RDW 17.3 % (11.6-15.6); WHITE BLOOD COUNT 8.9 K/mm3 (4.0-10.0)
--- NOTE | 2017-10-18 08:16 | PN ---
Physical Exam: SUBJECTIVE: Patient seen and examined at bedside. Ate breakfast, walked a few steps with physical therapy. OBJECTIVE: Vital Signs Period Temp Pulse Resp BP Sys/Dinh Pulse Ox Last 24 Hr 97.7 F-99.2 F 63-71 17-20 125-162/58-82 96 GENERAL: The patient awake, alert. A&Ox3 but with periods of confusion HEAD: C-collar in place LUNGS: Breath sounds equal, clear to auscultation bilaterally, no wheezes, no crackles, no accessory muscle use. HEART: Regular rate and rhythm, S1, S2 ABDOMEN: Soft, nontender, nondistended LLE: erythema improved, no edema Laboratory Results - last 24 hr 10/17/17 10/17/17 06:30 06:30 WBC 9.1 RBC 4.21 Hgb 12.0 Hct 35.6 MCV 84.5 MCH 28.4 MCHC 33.6 RDW 17.7 H Plt Count 296 MPV 9.0 Absolute Neuts (auto) 5.7 Neutrophils % 63.4 Neutrophils % (Manual) 65.6 Band Neutrophils % 0.0 Lymphocytes % 12.2 Lymphocytes % (Manual) 14.6 D Monocytes % 21.9 H Monocytes % (Manual) 15 H Eosinophils % 2.1 D Eosinophils % (Manual) 2.1 D Basophils % 0.4 Basophils % (Manual) 1.0 D Myelocytes % (Man) 0 D Promyelocytes % (Man) 0 Blast Cells % (Manual) 0 Nucleated RBC % 0 Metamyelocytes 0 Hypochromia 0 Platelet Estimate Normal Polychromasia 1+ Poikilocytosis 1+ Anisocytosis 1+ Microcytosis 1+ Macrocytosis 1+ Sodium 147 H Potassium 3.6 Chloride 110 H Carbon Dioxide 28 Anion Gap 9 BUN 17 Creatinine 0.6 Creat Clearance w eGFR > 60 Random Glucose 119 H Calcium 8.6 Magnesium 2.2 Total Bilirubin 0.4 AST 30 ALT 37 Alkaline Phosphatase 70 Total Protein 6.0 L Albumin 2.7 L Active Medications Generic Name Dose Route Start Last Admin Trade Name Freq PRN Reason Stop Dose Admin Acetaminophen 650 mg 10/12/17 14:52 10/14/17 21:06 Tylenol - PO 650 mg Q6H PRN Administration PAIN LEVEL 1-5 Amlodipine Besylate 10 mg 10/17/17 10:00 10/17/17 10:26 Norvasc - PO 10 mg DAILY ALLYN Administration Atorvastatin Calcium 10 mg 10/12/17 22:00 10/17/17 23:55 Lipitor - PO 10 mg HS ALLYN Administration Enoxaparin Sodium 40 mg 10/15/17 10:00 10/17/17 10:30 Lovenox - SQ 40 mg DAILY ALLYN Administration Haloperidol 2 mg 10/15/17 12:33 10/16/17 09:57 Haldol - PO 2 mg BID PRN Administration AGITATION Hydrocortisone 1 applic 10/13/17 13:45 10/17/17 23:56 Hytone 1% Cream - TP 1 applic BID ALLYN Administration Ceftaroline Fosamil 600 mg/ 100 mls @ 200 mls/hr 10/13/17 13:45 10/17/17 23: 57 Dextrose IVPB 200 mls/hr BID ALLYN Administration Protocol Levothyroxine Sodium 25 mcg 10/13/17 07:00 10/18/17 06:45 Synthroid - PO 25 mcg DAILY@0700 [facility] Administration Metoprolol Succinate 50 mg 10/17/17 15:01 10/17/17 23:56 Toprol Xl - PO 50 mg BID ALLYN Administration Mirtazapine 7.5 mg 10/17/17 13:13 10/17/17 23:56 Remeron - PO 7.5 mg HS ALLYN Administration Tamsulosin HCl 0.4 mg 10/18/17 08:30 Flomax - PO DAILY@0830 [facility] Venlafaxine HCl 37.5 mg 10/12/17 20:00 10/17/17 10:29 Effexor Xr - PO Not Given DAILY [facility] Imaging 10/12 CT c-spine: nondisplaced fracture right lateral mass of C2 and left lamina C3 10/12 CT head: no acute process; left frontal lobe 1.2cm calcified meningioma; mild soft tissue swelling of scalp over right posterior parietal bone ASSESSMENT/PLAN 86 year-old female with a PMH significant for HTN, HLD, and hypothyroidism. Admitted for c-spine fracture following mechanical fall. Cervical spine fracture --closed management of C2 and C3 fractures --will need C collar for 3 months then followup with Dr. Choudhury in his office --no restrictions on discharge from neurosurgery standpoint. Left frontal lobe meningioma --discussed with brother HCP, he agrees with Dr. Choudhury no further treatment LLE cellulitis v. vasculitis --erythema has improved and crp 23.3-->7.5 today --patient was seen yesterday by Dr. Bo, travel consultant, and Dr. Pak, insurance collector, both of the opinion this is not vasculitis --continue ceftaroline; switched topical hydrocortisone to triamcinolone --ID following Delirium --onset of acute altered mental status during hospital stay --seen and evaluated by psych: avoid benzos; continue remeron 7.5mg at night (15mg was oversedating), PO haldol PRN (less effect on QT interval than injected formulation) --much improved today, conversing with staff, walked with PT Urinary retention --10/14: significant bladder distension; placed gibson-->1,000cc's output --US renal, bladder: unremarkable --two negative urine cultures (first negative culture was before antibiotics) --d/c gibson today, voiding trial, no UOP x 8 hours, reinsert gibson Hypertension --continue increased amlodipine 10mg, Toprol XL 50mg ID Hypothyroidism --TSH wnl --continue levothyroxine FEN Fluids: PO intake adequate Electrolytes: replete as indicated Nutrition: dysphagia minced, nectar thick, Magic Cup, Ensure Pudding, Ensure Compact DVT prophylaxis: lovenox Dispo: plan is for SNF placement; discussed with HCP brother, Olu Naidu, . Full code. Visit type - Emergency Visit Emergency Visit: Yes ED Registration Date: 10/12/17 Care time: The patient presented to the Emergency Department on the above date and was hospitalized for further evaluation of their emergent condition. - New Patient This patient is new to me today: No - Critical Care Critical Care patient: No
[2017-10-18 09:08] LABS: CHLORIDE 110 mmol/L (98-107); POTASSIUM 3.6 mmol/L (3.5-5.1); SODIUM 147 mmol/L (136-145)
[2017-10-18] MEDS: ENOXAPARIN NA (PORCINE) 40 MG/0.4 ML DISP.SYRIN SQ SCH (09:18)
[2017-10-18] MEDS: TAMSULOSIN HCL 0.4 MG CAP.ER.24H (FP) PO SCH (09:18)
[2017-10-18] MEDS: VENLAFAXINE HCL 37.5 MG E.R. CAPSULE (FP) PO SCH (09:18)
[2017-10-18] MEDS: amLODIPine BESYLATE 10 MG TABLET (FP) PO SCH (09:18)
[2017-10-18] MEDS: HYDROCORTISONE 1% TOPICAL CREAM 30 GM TUBE TP SCH (09:19)
[2017-10-18 09:39] LABS: ALBUMIN 2.5 g/dl (3.4-5.0); ALK PHOS 67 U/L (45-117); ANION GAP 8 (8-16); BILIRUBIN,TOTAL 0.4 mg/dL (0.2-1.0); BLOOD UREA NITROGEN 22 mg/dL (7-18); CALCIUM 8.7 mg/dL (8.5-10.1); CO2 29 mmol/L (21-32); CREATININE 0.7 mg/dL (0.55-1.02); GLUCOSE,RANDOM 120 mg/dL (74-106); MAGNESIUM 2.1 mg/dL (1.8-2.4); SGOT/AST 18 U/L (15-37); SGPT/ALT 29 U/L (12-78); TOT PROT 5.8 g/dl (6.4-8.2)
--- NOTE | 2017-10-18 14:48 | PN ---
Progress Note, OPERATIONS MANAGER/COORDINATOR - Note Progress Note: Selected Entries 10/18/17 14:00 Breakfast 50% Lunch 50% Doing well with po intake. encourage supplements b/n meals.
[2017-10-18] MEDS: CEFTAROLINE FOSAMIL ACETATE 600 MG in DEXTROSE 5%-WATER - 100 ML IVPB SCH ×2 (15:00→22:09)
[2017-10-18] MEDS: ACETAMINOPHEN 325 MG TABLET (FP) PO PRN (17:44)
[2017-10-18] MEDS: TRIAMCINOLONE ACET 0.1% CREAM 15 GM TUBE TP SCH (17:54)
--- NOTE | 2017-10-18 18:11 | PN ---
Progress Note (short form) - Note Progress Note: much improved today still foot pain persists-but less Vital Signs Period Temp Pulse Resp BP Sys/Dinh Pulse Ox Last 24 Hr 98.1 F-99.2 F 69-71 20-20 130-162/71-100 96 cervical collar cor-rrr lungs clear abd soft,nt ext erythema almost resolved still painful to touch foot is warm CBC, BMP 10/18/17 07:00 10/18/17 07:00 Laboratory Tests 10/13/17 10/13/17 10/18/17 18:00 18:00 07:00 ESR 92 H C-Reactive Protein 23.3 H 7.5 H a/p cellulitis improved-erythema resolving pain is less rheum and derm noted day #5 ceftaroline could switch to po clindamycin at discharge to treat for total 7 days-another 2 with probiotics would avoid doxycycline as she cannot sit upright for long if pain persists would get vascular consult please call back if needed Problem List - Problems (1) Cellulitis Code(s): L03.90 - CELLULITIS, UNSPECIFIED Qualifiers: Site of cellulitis: extremity Site of cellulitis of extremity: lower extremity Laterality: left Qualified Code(s): L03.116 - Cellulitis of left lower limb (2) Cervical spine fracture Code(s): S12.9XXA - FRACTURE OF NECK, UNSPECIFIED, INITIAL ENCOUNTER Qualifiers: Encounter type: initial encounter Cervical vertebra fracture level: C2 Fracture type: closed Fracture morphology: unspecified fracture morphology Fracture alignment: nondisplaced Qualified Code(s): S12.101A - Unspecified nondisplaced fracture of second cervical vertebra, initial encounter for closed fracture
[2017-10-18] MEDS: LACTOBACILLUS ACIDOPHILUS 1 TABLET PO SCH (18:28)
[2017-10-18] MEDS: MIRTAZAPINE 15 MG TABLET (FP) PO SCH (21:28)
[2017-10-18] MEDS: ATORVASTATIN CA 10 MG TABLET (FP) PO SCH (21:28)
[2017-10-18] MEDS ORDERED: SODIUM CHLORIDE 1,000 ML IV SCH (22:30)
[2017-10-19] MEDS: LEVOTHYROXINE NA 25 MCG TABLET (FP) PO SCH (06:13)
[2017-10-19 07:15] LABS: BASO % 0.5 % (0-2.0); EOS % 3.4 % (0-4.5); HEMATOCRIT 32.6 % (32.4-45.2); HEMOGLOBIN 11.1 GM/dL (10.7-15.3); LYMPH % 12.9 % (8-40); MCH 28.9 pg (25.7-33.7); MCHC 33.9 g/dl (32.0-36.0); MEAN CELL VOLUME 85.2 fl (80-96); MEAN PLT VOLUME 8.9 fl (7.5-11.1); MONO % 20.2 % (3.8-10.2); PLATELET COUNT 290 K/MM3 (134-434); RBC 3.83 M/mm3 (3.60-5.2); RDW 17.6 % (11.6-15.6); WHITE BLOOD COUNT 9.2 K/mm3 (4.0-10.0)
--- NOTE | 2017-10-19 09:24 | PN ---
Physical Exam: SUBJECTIVE: Patient seen and examined at the bedside. Feeling better, pain controlled. Aware of who she is and where she is. No evidence of confusion or acute delirium OBJECTIVE: Patient's reported delirium has now resolved - AOx3, aware that she will need SNF Participating in PT, ambulated 20 feet today with close guard of 2 To be switched to PO Clindamycin per ID for a total of 7 days with probiotics cellulitis improved, denies pain Vital Signs Period Temp Pulse Resp BP Sys/Dinh Pulse Ox Last 24 Hr 98.0 F-99.1 F 62-72 20-20 118-162/60-100 96 GENERAL: The patient is awake, alert, and fully oriented, in no acute distress, aware that she will need SNF HEAD: Normal with no signs of trauma - on hard collar EYES: PERRL, extraocular movements intact, sclera anicteric, conjunctiva clear. No ptosis. ENT: Ears normal, nares patent, oropharynx clear without exudates NECK: Trachea midline, full range of motion, supple. LUNGS: Breath sounds equal, clear to auscultation anteriorly HEART: Regular rate and rhythm ABDOMEN: Soft, nontender, nondistended, normoactive bowel sounds EXTREMITIES: left lower ext warm to touch, right leg warm to touch NEUROLOGICAL:Normal speech, gait not observed. PSYCH: Normal mood, normal affect, reported acute delirium likely medication induced, resolved Laboratory Results - last 24 hr 10/18/17 10/18/17 10/19/17 07:00 07:00 06:35 WBC 9.2 RBC 3.83 Hgb 11.1 Hct 32.6 MCV 85.2 MCH 28.9 MCHC 33.9 RDW 17.6 H Plt Count 290 MPV 8.9 Absolute Neuts (auto) 5.8 Neutrophils % 63.0 Lymphocytes % 12.9 Monocytes % 20.2 H Eosinophils % 3.4 Basophils % 0.5 Nucleated RBC % 0 ESR 96 H Carbon Dioxide 29 Anion Gap 8 BUN 22 H Creatinine 0.7 Creat Clearance w eGFR > 60 Random Glucose 120 H Calcium 8.7 Magnesium 2.1 Total Bilirubin 0.4 AST 18 ALT 29 Alkaline Phosphatase 67 C-Reactive Protein 7.5 H Total Protein 5.8 L Albumin 2.5 L Active Medications Generic Name Dose Route Start Last Admin Trade Name Freq PRN Reason Stop Dose Admin Acetaminophen 650 mg 10/12/17 14:52 10/18/17 17:44 Tylenol - PO 650 mg Q6H PRN Administration PAIN LEVEL 1-5 Amlodipine Besylate 10 mg 10/17/17 10:00 10/18/17 09:18 Norvasc - PO 10 mg DAILY ALLYN Administration Atorvastatin Calcium 10 mg 10/12/17 22:00 10/18/17 21:28 Lipitor - PO 10 mg HS ALLYN Administration Enoxaparin Sodium 40 mg 10/15/17 10:00 10/18/17 09:18 Lovenox - SQ 40 mg DAILY ALLYN Administration Haloperidol 2 mg 10/15/17 12:33 10/16/17 09:57 Haldol - PO 2 mg BID PRN Administration AGITATION Ceftaroline Fosamil 600 mg/ 100 mls @ 200 mls/hr 10/13/17 13:45 10/18/17 22: 09 Dextrose IVPB 200 mls/hr BID ALLYN Administration Protocol Sodium Chloride 1,000 mls @ 42 mls/hr 10/18/17 22:30 10/18/17 22:31 Normal Saline - IV 42 mls/hr ASDIR ALLYN Administration Lactobacillus Acidophilus 1 tab 10/18/17 18:15 10/18/17 18:28 Bacid - PO 1 tab DAILY ALLYN Administration Levothyroxine Sodium 25 mcg 10/13/17 07:00 10/19/17 06:13 Synthroid - PO 25 mcg DAILY@0700 ALLYN Administration Metoprolol Succinate 50 mg 10/17/17 15:01 10/18/17 21:28 Toprol Xl - PO 50 mg BID ALLYN Administration Mirtazapine 7.5 mg 10/17/17 13:13 10/18/17 21:28 Remeron - PO 7.5 mg HS ALLYN Administration Tamsulosin HCl 0.4 mg 10/18/17 08:30 10/18/17 09:18 Flomax - PO 0.4 mg DAILY@0830 ALLYN Administration Triamcinolone Acetonide 1 applic 10/18/17 11:30 10/18/17 17:54 Aristocort 0.1% Cream - TP 1 applic DAILY ALLYN Administration Venlafaxine HCl 37.5 mg 10/12/17 20:00 10/18/17 09:18 Effexor Xr - PO 37.5 mg DAILY ALLYN Administration ASSESSMENT/PLAN: Patient is a 86 year old female with a significant past medical history of hyperlipidemia, hypertension, hypothyroidism. She was admitted on 10/12/2017 from the [facility] after she sustained an injury of her c-spine after a mechanical fall. On admission, she was also noted to have left lower ext cellulitis. Neuro: Mechanical Fall with Injury to C Spine c2-c3 fractures: Seen by neurosurgery who recommended patient to have a c colar for 3 months (through January 2018) with a neurosurgery follow up. Left frontal meningioma: seen on routine imaging, no further workup. Neuro surgery monitoring outpatient. ID: Left lower ext cellulitis: Improving Treated with Ceftriaxone duirng hospitalization, to be transitioned to Clindamycin PO for seven days. Afebrile, WBC stable. blood and urine cultures negative. Psyche: Delirium, resolved Likely medication induced or electrolyte imbalance (K 2.8). Now resolved. Was initiated on Haldol for agitation, has not taken Haldol since 10/16. She is alert and oriented, aware that she will need rehab and willing to go, mentioned Ortiz. No signs of altered mentation on exam. : Urinary retention Voiding trial attempted and unsuccessful. Retention likely secondary to prolonged immobility. Can d/c to SNF with gibson and attempt voiding trial outpatient. Imaging of renal/bladder within normal limits. Card: Hypertension, controlled: On Norvasc, Toprol Endo: Hypothyroidism, on Synthroid fen tolerating PO, stop ivf monitor electrolytes, encourage hydration dysphagia diet prophy lovenox incentive spirometer Protonix Disposition: pateint in agreement to participate in PT. Wants rehab. Visit type - Emergency Visit Emergency Visit: Yes ED Registration Date: 10/12/17 Care time: The patient presented to the Emergency Department on the above date and was hospitalized for further evaluation of their emergent condition. - New Patient This patient is new to me today: Yes Date on this admission: 10/19/17 - Critical Care Critical Care patient: No - Discharge Referral Referred to [facility] Med P.C.: No
[2017-10-19 09:31] LABS: ALBUMIN 2.3 g/dl (3.4-5.0); ANION GAP 9 (8-16); BLOOD UREA NITROGEN 24 mg/dL (7-18); CALCIUM 8.3 mg/dL (8.5-10.1); CHLORIDE 109 mmol/L (98-107); CO2 30 mmol/L (21-32); CREATININE 0.8 mg/dL (0.55-1.02); GLUCOSE,RANDOM 102 mg/dL (74-106); POTASSIUM 3.8 mmol/L (3.5-5.1); SGOT/AST 13 U/L (15-37); SGPT/ALT 23 U/L (12-78); SODIUM 148 mmol/L (136-145)
[2017-10-19 09:34] LABS: ALK PHOS 58 U/L (45-117); BILIRUBIN,TOTAL 0.4 mg/dL (0.2-1.0); TOT PROT 5.3 g/dl (6.4-8.2)
[2017-10-19] MEDS ORDERED: PT OWN MED DRAWER 7, Y5N ONE ×2 (09:55→20:40)
[2017-10-19] MEDS: TAMSULOSIN HCL 0.4 MG CAP.ER.24H (FP) PO SCH (10:15)
[2017-10-19] MEDS: CEFTAROLINE FOSAMIL ACETATE 600 MG in DEXTROSE 5%-WATER - 100 ML IVPB SCH ×2 (10:15→21:08)
[2017-10-19] MEDS: ENOXAPARIN NA (PORCINE) 40 MG/0.4 ML DISP.SYRIN SQ SCH (10:15)
[2017-10-19] MEDS: amLODIPine BESYLATE 10 MG TABLET (FP) PO SCH (10:15)
[2017-10-19] MEDS: LACTOBACILLUS ACIDOPHILUS 1 TABLET PO SCH (10:15)
[2017-10-19] MEDS: VENLAFAXINE HCL 37.5 MG E.R. CAPSULE (FP) PO SCH (10:16)
[2017-10-19] MEDS: TRIAMCINOLONE ACET 0.1% CREAM 15 GM TUBE TP SCH (10:17)
[2017-10-19 10:46] LABS: ACANTHOCYTES 0; ANISOCYTOSIS 0; HELMET CELLS 0; HOWELL-JOLLY BODIES 0; MACROCYTOSIS 0; OVALOCYTE 0; PLATELET ESTIMATE NORMAL; ROULEAU 0; SICKELED CELLS 0; TARGET CELLS 0; TEAR DROP CELLS 0; TOXIC GRANULATION 0
[2017-10-19] MEDS: MIRTAZAPINE 15 MG TABLET (FP) PO SCH (21:07)
[2017-10-19] MEDS: ATORVASTATIN CA 10 MG TABLET (FP) PO SCH (21:08)
[2017-10-20 03:29] VITALS: BMI 23.2
[2017-10-20] MEDS: LEVOTHYROXINE NA 25 MCG TABLET (FP) PO SCH (06:11)
--- NOTE | 2017-10-20 07:27 | DS ---
Physical Exam: SUBJECTIVE: Patient seen and examined at the bedside. Feels well today, in no distress. Awake and alert. Awaiting placement to rehab. OBJECTIVE: Patient's reported delirium has now resolved - AOx3, aware that she will need SNF Participating in PT To be switched to PO Clindamycin per ID for a total of 7 days with probiotics cellulitis improved, denies pain Vital Signs Period Temp Pulse Resp BP Sys/Dinh Pulse Ox Last 24 Hr 98.2 F-98.7 F 65-73 16-20 125-141/63-75 96-96 PHYSICAL EXAM GENERAL: The patient is awake, alert, and fully oriented, in no acute distress, aware that she will need SNF HEAD: Normal with no signs of trauma - on hard collar EYES: PERRL, extraocular movements intact, sclera anicteric, conjunctiva clear. No ptosis. ENT: Ears normal, nares patent, oropharynx clear without exudates NECK: Trachea midline, full range of motion, supple. LUNGS: Breath sounds equal, clear to auscultation anteriorly HEART: Regular rate and rhythm ABDOMEN: Soft, nontender, nondistended, normoactive bowel sounds EXTREMITIES: left lower ext warm to touch, right leg warm to touch NEUROLOGICAL:Normal speech, gait not observed. PSYCH: Normal mood, normal affect, reported acute delirium likely medication induced, resolved LABS Laboratory Results - last 24 hr 10/19/17 10/19/17 06:35 06:35 WBC 9.2 RBC 3.83 Hgb 11.1 Hct 32.6 MCV 85.2 MCH 28.9 MCHC 33.9 RDW 17.6 H Plt Count 290 MPV 8.9 Absolute Neuts (auto) 5.8 Neutrophils % 63.0 Neutrophils % (Manual) 64.0 Band Neutrophils % 1.0 Lymphocytes % 12.9 Lymphocytes % (Manual) 13.0 Monocytes % 20.2 H Monocytes % (Manual) 19 H Eosinophils % 3.4 Eosinophils % (Manual) 2.0 Basophils % 0.5 Basophils % (Manual) 1.0 Myelocytes % (Man) 0 Promyelocytes % (Man) 0 Blast Cells % (Manual) 0 Nucleated RBC % 1 H Metamyelocytes 0 Hypochromia 0 Toxic Granulation 0 Dohle Bodies 0 Platelet Estimate Normal Polychromasia 0 Poikilocytosis 0 Basophilic Stippling 0 Anisocytosis 0 Microcytosis 0 Macrocytosis 0 Spherocytes 0 Sickle Cells 0 Target Cells 0 Tear Drop Cells 0 Ovalocytes 0 Stomatocytes 0 Helmet Cells 0 [place] Bodies 0 [place] Rings 0 [place] Cells 0 Acanthocytes (Spur) 0 Rouleaux 0 Fragmented RBCs 0 Schistocytes 0 Sodium 148 H Potassium 3.8 Chloride 109 H Carbon Dioxide 30 Anion Gap 9 BUN 24 H Creatinine 0.8 Creat Clearance w eGFR > 60 Random Glucose 102 Calcium 8.3 L Magnesium 2.0 Total Bilirubin 0.4 AST 13 L ALT 23 Alkaline Phosphatase 58 Total Protein 5.3 L Albumin 2.3 L HOSPITAL COURSE: Date of Admission:10/12/17 Date of Discharge: 10/20/17 Patient is a 86 year old female with a significant past medical history of hyperlipidemia, hypertension, hypothyroidism. She was admitted on 10/12/2017 from the [facility] after she sustained an injury of her c-spine after a mechanical fall. On admission, she was also noted to have left lower ext cellulitis. Neuro: Mechanical Fall with Injury to C Spine c2-c3 fractures: Seen by neurosurgery who recommended patient to have a c colar for 3 months (through January 2018) with a neurosurgery follow up. Left frontal meningioma: seen on routine imaging, no further workup. Neuro surgery monitoring outpatient. ID: Left lower ext cellulitis: Improving Treated with Ceftriaxone duirng hospitalization, to be transitioned to Clindamycin PO for seven days. Afebrile, WBC stable. blood and urine cultures negative. Psyche: Delirium, resolved Likely medication induced or electrolyte imbalance (K 2.8). Now resolved. Was initiated on Haldol for agitation, has not taken Haldol since 10/16. She is alert and oriented, aware that she will need rehab and willing to go. No signs of altered mentation on exam. : Urinary retention Voiding trial attempted and unsuccessful. Retention likely secondary to prolonged immobility. Can d/c to SNF with gibson and attempt voiding trial outpatient. Imaging of renal/bladder within normal limits. Card: Hypertension, controlled: On Norvasc, Toprol Endo: Hypothyroidism, on Synthroid fen tolerating PO, stop ivf monitor electrolytes, encourage hydration dysphagia diet prophy lovenox incentive spirometer Protonix Disposition: patient in agreement to participate in PT. Wants rehab. Minutes to complete discharge: 60 Discharge Summary Reason For Visit: CELLULITIS, FRACTURE OF CERVICAL VERTEBRA Current Active Problems Cellulitis (Acute) Cervical spine fracture (Acute) Condition: Improved - Instructions Diet, Activity, Other Instructions: Mrs Osei: You were admitted to [facility] after a fall at your facility and you were also treated for left leg cellulitis. Mechanical Fall with injury to C2-C3 spine Please continue to wear the C Collar for 3 months as directed by the neurosurgery. This will help your injury to your spine heal appropriately. Please follow up [facility] Dr. Rosas in 3 weeks for a post hospital visit. You sustained a C2 and C3 fracture which are non-displaced. These fractures should heal with immobilization in this collar for [address] did not reveal any concerning traumatic injury, however, there is a small, calcified meningioma over her Left Central sulcus that needs close follow up monitoring. Left leg Cellulitis You were treated with IV antibiotics during your hospital stay. You will be put on Clindamycin 300mg every 6 hours (oral antibiotics for a total of 7 days - you started this medication on 10/20/2017). Please take as directed. You should continue the probiotics while on the antibiotics. If your left leg pain worsens, we recommend that you follow up with a vascular specialist. I have put a referral in your discharge packet of a vascular specialist. Gibson cath: We attempted to remove your gibson during your hospitalization, however due your immobilization, you are unable to be taken off the gibson at this time as you continue to retain. We imaged your bladder and your kidney and they are normal. The facility may discontinue the gibson catheter once you are more mobile and help you to the bathroom. Dysphagia diet, soft food, thickner recommended. Please call me with any questions that you may have. Jeimy Hood MORNING NAN[phone] Referrals: Guille Rosas MD, FAANS [Staff Physician] - 3 Weeks (please follow up with Dr. Rosas in 3 weeks ) Salomón Monteiro [Primary Care Provider] - Osman Booth MD [Staff Physician] - (vascular surgeon) Disposition: [facility] - Home Medications Comprehensive Discharge Medication List: Ambulatory Orders Levothyroxine [Synthroid -] 25 mcg PO DAILY 10/12/17 Pravastatin Sodium 20 mg PO DAILY 10/12/17 Venlafaxine HCl ER [Effexor Xr -] 37.5 mg PO DAILY 10/12/17 Acetaminophen [Tylenol .Regular Strength -] 650 mg PO Q6H PRN tablet 10/20/17 Amlodipine Besylate [Norvasc -] 10 mg PO DAILY tablet 10/20/17 Clindamycin [Cleocin -] 300 mg PO Q6HPO capsule 10/20/17 Lactobacillus Acidophilus [Bacid -] 1 tab PO DAILY tab 10/20/17 Metoprolol Succinate [Toprol XL -] 50 mg PO BID tab.sr.24h 10/20/17 Mirtazapine [Remeron -] 7.5 mg PO HS tablet 10/20/17 Pantoprazole Sodium [Protonix -] 20 mg PO DAILY tablet.ec 10/20/17 Tamsulosin HCl [Flomax -] 0.4 mg PO DAILY@0830 cap.er.24h 10/20/17 Triamcinolone 0.1% Cream [Aristocort 0.1% Cream -] 1 applic TP DAILY applic 12/28 This patient is new to me today: Yes Date on this admission: 10/20/17 Emergency Visit: Yes ED Registration Date: 10/12/17 Care time: The patient presented to the Emergency Department on the above date and was hospitalized for further evaluation of their emergent condition. Critical Care patient: No - Discharge Referral Referred to [facility] Med P.C.: No
[2017-10-20] MEDS ORDERED: PT OWN MED DRAWER 7, Y5N ONE (09:35)
[2017-10-20] MEDS: TAMSULOSIN HCL 0.4 MG CAP.ER.24H (FP) PO SCH (10:26)
[2017-10-20] MEDS: LACTOBACILLUS ACIDOPHILUS 1 TABLET PO SCH (10:26)
[2017-10-20] MEDS: PANTOPRAZOLE 20 MG TABLET (FP) PO SCH (10:26)
[2017-10-20] MEDS: amLODIPine BESYLATE 10 MG TABLET (FP) PO SCH (10:26)
[2017-10-20] MEDS: VENLAFAXINE HCL 37.5 MG E.R. CAPSULE (FP) PO SCH (10:26)
[2017-10-20] MEDS: ENOXAPARIN NA (PORCINE) 40 MG/0.4 ML DISP.SYRIN SQ SCH (10:26)
[2017-10-20] MEDS: TRIAMCINOLONE ACET 0.1% CREAM 15 GM TUBE TP SCH (11:41)
[2017-10-20] MEDS: CLINDAMYCIN HCL 150 MG CAPSULE (FP) PO SCH ×2 (11:41→18:32)
[2017-10-20] MEDS: ACETAMINOPHEN 325 MG TABLET (FP) PO PRN (16:48)
[2017-10-20] MEDS: MIRTAZAPINE 15 MG TABLET (FP) PO SCH (23:23)
[2017-10-20] MEDS: ATORVASTATIN CA 10 MG TABLET (FP) PO SCH (23:23)
[2017-10-21] MEDS: CLINDAMYCIN HCL 150 MG CAPSULE (FP) PO SCH ×2 (00:30→06:31)
[2017-10-21] MEDS: LEVOTHYROXINE NA 25 MCG TABLET (FP) PO SCH (06:34)
[2017-10-21] MEDS: TAMSULOSIN HCL 0.4 MG CAP.ER.24H (FP) PO SCH (08:30)
[2017-10-21] MEDS ORDERED: PT OWN MED DRAWER 7, Y5N ONE (09:07)
[2017-10-21] MEDS: TRIAMCINOLONE ACET 0.1% CREAM 15 GM TUBE TP SCH (09:10)
[2017-10-21] MEDS: amLODIPine BESYLATE 10 MG TABLET (FP) PO SCH (09:10)
[2017-10-21] MEDS: LACTOBACILLUS ACIDOPHILUS 1 TABLET PO SCH (09:10)
[2017-10-21] MEDS: PANTOPRAZOLE 20 MG TABLET (FP) PO SCH (09:10)
[2017-10-21] MEDS: ENOXAPARIN NA (PORCINE) 40 MG/0.4 ML DISP.SYRIN SQ SCH (09:10)
[2017-10-21] MEDS: VENLAFAXINE HCL 37.5 MG E.R. CAPSULE (FP) PO SCH (09:10)
[2017-10-21 11:26] VITALS: BP 132/69; PULSE 69; TEMP 97.7
== END 2017-10-21 11:40 | DRG 603 ==
LOC: JER 08:22 → JERBED 14:16 → J6S 16:30
PROVIDERS: ADMIT Hospitalist; ATTEND Nurse Practitioner Family
DX: L03.116 Cellulitis of left lower limb (principal); S12.101A Unspecified nondisplaced fracture of second cervical vertebra, initial encounter for closed fracture; S12.201A Unspecified nondisplaced fracture of third cervical vertebra, initial encounter for closed fracture; F19.921 Other psychoactive substance use, unspecified with intoxication with delirium; E03.9 Hypothyroidism, unspecified; I10 Essential (primary) hypertension; D32.9 Benign neoplasm of meninges, unspecified; R41.0 Disorientation, unspecified; E78.5 Hyperlipidemia, unspecified; R33.9 Retention of urine, unspecified; G51.0 Bell's palsy; W18.39XA Other fall on same level, initial encounter; Y92.098 Other place in other non-institutional residence as the place of occurrence of the external cause; Z96.652 Presence of left artificial knee joint
CPT/HCPCS: 36415; 70450-TC; 71045-TC-FY; 72125-TC; 72131-TC; 72141-TC; 72170-TC-FY; 73610-TC-LT-FY; 73630-TC-LT; 76775-TC; 76856-TC; 80048; 80053; 81003; 81015; 82803; 83605; 83735; 84443; 84484; 85025; 85610; 85651; 85730; 86140; 86850; 86900; 86901; 87040; 87086; 93005; 93010; 93970-TC; 97116-GP; 97161-GP; 99282-25; G0480; J0131; J7030

== ENCOUNTER 2019-03-01 08:59 | Inpatient (IN) | payer OTHER ==
[2019-03-01] MEDS ORDERED: KETOROLAC TROMETHAMINE 15 MG/ML VIAL IM ONE (10:11)
[2019-03-01] MEDS ORDERED: KETOROLAC TROMETHAMINE 15 MG/ML VIAL ONE (10:19)
--- NOTE | 2019-03-01 10:40 | PDOC ---
History of Present Illness - General Chief Complaint: Pain Stated Complaint: RIGHT ARM PAIN Time Seen by Provider: 03/01/19 09:18 - History of Present Illness Initial Comments: 03/01/19 10:26 88 F with h/o HTN, hypothyroid, C2-C3 fx, presenting to ED with R arm weakness and numbness. Pt states that her symptoms began last night when she noticed her R hand felt very cold. She states that she also had pain radiating from her hand all the way to her shoulder. Pt also reports weakness in her vice president client services strength that started around the same time. Pt denies any headache or neck pain. Has not had any falls or injuries since her C-spine fracture last year. Pt denies weakness/numbness in any other extremity. 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 Past History - Past Medical History Allergies/Adverse Reactions: Allergies Allergy/AdvReac Type Severity Reaction Status Date / Time No Known Allergies Allergy Verified 10/12/17 08:30 Home Medications: Ambulatory Orders Levothyroxine [Synthroid -] 25 mcg PO DAILY 10/12/17 Pravastatin Sodium 20 mg PO DAILY 10/12/17 Venlafaxine HCl ER [Effexor Xr -] 37.5 mg PO DAILY 10/12/17 Acetaminophen [Tylenol .Regular Strength -] 650 mg PO Q6H PRN tablet 10/20/17 Amlodipine Besylate [Norvasc -] 10 mg PO DAILY tablet 10/20/17 Clindamycin [Cleocin -] 300 mg PO Q6HPO capsule 10/20/17 Lactobacillus Acidophilus [Bacid -] 1 tab PO DAILY tab 10/20/17 Metoprolol Succinate [Toprol XL -] 50 mg PO BID tab.sr.24h 10/20/17 Mirtazapine [Remeron -] 7.5 mg PO HS tablet 10/20/17 Pantoprazole Sodium [Protonix -] 20 mg PO DAILY tablet.ec 10/20/17 Tamsulosin HCl [Flomax -] 0.4 mg PO DAILY@0830 cap.er.24h 10/20/17 Triamcinolone 0.1% Cream [Aristocort 0.1% Cream -] 1 applic TP DAILY applic 12/28 COPD: No HTN: Yes Hypercholesterolemia: Yes Thyroid Disease: Yes - Surgical History Orthopedic Surgery: Yes (left knee replacement) - Psycho Social/Smoking Cessation Hx Smoking History: Former smoker Have you smoked in the past 12 months: No Information on smoking cessation initiated: No Hx Alcohol Use: No Drug/Substance Use Hx: No Review of Systems - Review of Systems Comments:: 03/01/19 10:40 "GENERAL/CONSTITUTIONAL: No fever or chills. No weakness. HEAD, EYES, EARS, NOSE AND THROAT: No change in vision. No ear pain or discharge. No sore throat. CARDIOVASCULAR: No chest pain, no shortness of breath, no loss of consciousness RESPIRATORY: No cough, wheezing, or hemoptysis. GASTROINTESTINAL: No nausea, vomiting, diarrhea or constipation. GENITOURINARY: No dysuria, frequency, or change in urination. MUSCULOSKELETAL: No joint or muscle swelling or pain. No neck or back pain. SKIN: No rash NEUROLOGIC: + RUE weakness and numbness, No vertigo ENDOCRINE: No increased thirst. No abnormal weight change. HEMATOLOGIC/LYMPHATIC: No anemia, easy bleeding, or history of blood clots. ALLERGIC/IMMUNOLOGIC: No hives or skin allergy. *Physical Exam - Vital Signs Last Vital Signs Temp Pulse Resp BP Pulse Ox 97.6 F 64 18 183/95 H 97 03/01/19 09:12 03/01/19 09:12 03/01/19 09:12 03/01/19 09:12 03/01/19 09:12 - Physical Exam 03/01/19 10:41 GENERAL: Awake, alert, and fully oriented, in no acute distress. HEAD: No signs of trauma EYES: PERRLA, EOMI, sclera anicteric, conjunctiva clear ENT: Auricles normal inspection, hearing grossly normal, nares patent, oropharynx clear without exudates. Moist mucosa NECK: Nontender, no stepoffs, Normal ROM, supple, no lymphadenopathy, JVD, or masses LUNGS: Breath sounds equal, clear to auscultation bilaterally. No wheezes, and no crackles HEART: Regular rate and rhythm, normal S1 and S2, no murmurs, rubs or gallops ABDOMEN: Soft, nontender, normoactive bowel sounds. No guarding, no rebound. No masses EXTREMITIES: Normal range of motion, no edema. No clubbing or cyanosis. No cords, erythema, or tenderness NEUROLOGICAL: + diminished sensation R hand, + RUE with diminished vice president client services strength and tricep extension, Cranial nerves II through XII intact. 5/5 strength and sensation in all other extremities, Normal speech, normal gait, normal cerebellar function SKIN: Warm, Dry, normal turgor, no rashes or lesions noted. ED Treatment Course - LABORATORY CBC & Chemistry Diagram: 03/01/19 10:38 03/01/19 10:24 - RADIOLOGY Radiology Studies Ordered: Category Date Time Status CERVICAL SPINE CT W/O CONTR [CT] Stat CT Scan 03/01/19 10:[address] WITHOUT CONTRAST [CT] Stat CT Scan 03/01/19 10:23 Ordered Medical Decision Making - Medical Decision Making 03/01/19 10:58 88 F with RUE weakness and numbness. Will need to evaluate for spinal cord injury given h/o C-spine fx last year, though pt with no new injuries and no neck pain. CVA less likely as pt with no other neuro deficits. - Labs - CT head, c-spine - Neuro c/s 03/01/19 14:25 Labs wnl CTs without acute process Case discussed with Dr. Hallman, who recommends MR brain and c-spine Decadron 10mg administered Discharge - Discharge Information Problems reviewed: Yes Clinical Impression/Diagnosis: RUE weakness - Admission Yes - Follow up/Referral - Patient Discharge Instructions - Post Discharge Activity
[2019-03-01 10:47] LABS: BASO % 0.4 % (0-2.0); EOS % 1.6 % (0-4.5); HEMATOCRIT 41.8 % (32.4-45.2); HEMOGLOBIN 13.9 GM/dL (10.7-15.3); LYMPH % 24.3 % (8-40); MCH 29.6 pg (25.7-33.7); MCHC 33.2 g/dl (32.0-36.0); MEAN PLT VOLUME 8.8 fl (7.5-11.1); MONO % 19.4 % (3.8-10.2); NEUT % 54.3 % (42.8-82.8); PLATELET COUNT 236 K/MM3 (134-434); RBC 4.69 M/mm3 (3.60-5.2); RDW 15.8 % (11.6-15.6); WHITE BLOOD COUNT 5.4 K/mm3 (4.0-10.0)
[2019-03-01 11:20] LABS: ALBUMIN 3.4 g/dl (3.4-5.0); ALK PHOS 69 U/L (45-117); ANION GAP 8 MMOL/L (8-16); BILIRUBIN,TOTAL 0.5 mg/dL (0.2-1); CALCIUM 8.6 mg/dL (8.5-10.1); CHLORIDE 106 mmol/L (98-107); CO2 28 mmol/L (21-32); CREATININE 0.7 mg/dL (0.55-1.3); GLUCOSE,RANDOM 105 mg/dL (74-106); POTASSIUM 3.5 mmol/L (3.5-5.1); SGOT/AST 17 U/L (15-37); SGPT/ALT 23 U/L (13-61); SODIUM 141 mmol/L (136-145); TOT PROT 6.7 g/dl (6.4-8.2)
[2019-03-01] MEDS ORDERED: morphine SULFATE 4 MG/ML VIAL IM STA (12:56)
[2019-03-01] MEDS ORDERED: morphine SULFATE 4 MG/ML VIAL ONE (13:04)
[2019-03-01] MEDS ORDERED: DEXAMETHASONE SOD PHOSPHATE 10 MG/1 ML VIAL IVPUSH ONE (13:27)
[2019-03-01] MEDS ORDERED: DEXAMETHASONE SOD PHOSPHATE 10 MG/1 ML VIAL ONE (14:00)
--- NOTE | 2019-03-01 15:15 | PN ---
Teaching Attending Note Name of Resident: Madison Temple ATTENDING PHYSICIAN STATEMENT I saw and evaluated the patient. I reviewed the resident's note and discussed the case with the resident. I agree with the resident's findings and plan as documented. SUBJECTIVE: Patient is an 88y/o female with HTN, hypothyroidism, HLD, Arguelles's Palsy (with residual effects) and C2-C3 fracture (2018) who presents with right arm pain. Patient feels better with no acute distress. Her symptoms resolved as per patient. no fever or chills. Temperature 97.6 F 03/01/19 09:12 Pulse Rate 64 03/01/19 09:12 Respiratory Rate 18 03/01/19 09:12 Blood Pressure 183/95 H 03/01/19 09:12 O2 Sat by Pulse Oximetry (%) 97 03/01/19 09:12 GENERAL: Awake, alert, and fully oriented, in no acute distress. HEAD: Normal with no signs of trauma. Left nasolabial fold flattening from before. Asymmetrical smile. EYES: Pupils equal, round and reactive to light, extraocular movements intact, conjunctiva clear. EARS, NOSE, THROAT: Ears normal, nares patent, moist mucous membranes. NECK: Normal range of motion, supple without lymphadenopathy, JVD, or masses. LUNGS: Clear to auscultation bilaterally. HEART: Regular rate and rhythm, normal S1 and S2, no murmur ABDOMEN: Soft, nontender, not distended, normoactive bowel sounds, no masses EXTREMITIES: 2+ pulses, warm, well-perfused. No peripheral edema. Large firm nodule at Right dorsal surface of right arm , NT to touch, no ecchymosis NEUROLOGICAL: Cranial nerves II-XII grossly intact, left nasolabial fold flattening. PSYCHIATRIC: Cooperative. Appropriate mood and affect. SKIN: Warm, dry, normal turgor CBCD WBC 5.4 K/mm3 (4.0-10.0) 03/01/19 10:38 RBC 4.69 M/mm3 (3.60-5.2) 03/01/19 10:38 Hgb 13.9 GM/dL (10.7-15.3) 03/01/19 10:38 Hct 41.8 % (32.4-45.2) D 03/01/19 10:38 MCV 89.0 fl (80-96) 03/01/19 10:38 MCHC 33.2 g/dl (32.0-36.0) 03/01/19 10:38 RDW 15.8 % (11.6-15.6) H D 03/01/19 10:38 Plt Count 236 K/MM3 (134-434) 03/01/19 10:38 MPV 8.8 fl (7.5-11.1) 03/01/19 10:38 CMP Sodium 141 mmol/L (136-145) 03/01/19 10:24 Potassium 3.5 mmol/L (3.5-5.1) 03/01/19 10:24 Chloride 106 mmol/L (98-107) 03/01/19 10:24 Carbon Dioxide 28 mmol/L (21-32) 03/01/19 10:24 Anion Gap 8 MMOL/L (8-16) 03/01/19 10:24 BUN 16.0 mg/dL (7-18) 03/01/19 10:24 Creatinine 0.7 mg/dL (0.55-1.3) 03/01/19 10:24 Random Glucose 105 mg/dL (74-106) 03/01/19 10:24 Calcium 8.6 mg/dL (8.5-10.1) 03/01/19 10:24 Total Bilirubin 0.5 mg/dL (0.2-1) 03/01/19 10:24 AST 17 U/L (15-37) 03/01/19 10:24 ALT 23 U/L (13-61) 03/01/19 10:24 Alkaline Phosphatase 69 U/L (45-117) 03/01/19 10:24 Total Protein 6.7 g/dl (6.4-8.2) 03/01/19 10:24 Albumin 3.4 g/dl (3.4-5.0) 03/01/19 10:24 Home Medications Medication Instructions Recorded Levothyroxine [Synthroid -] 25 mcg PO DAILY 10/12/17 Pravastatin Sodium 20 mg PO DAILY 10/12/17 Venlafaxine HCl ER [Effexor Xr -] 37.5 mg PO DAILY 10/12/17 Acetaminophen [Tylenol .Regular 650 mg PO Q6H PRN tablet 10/20/17 Strength -] Amlodipine Besylate [Norvasc -] 10 mg PO DAILY tablet 10/20/17 Clindamycin [Cleocin -] 300 mg PO Q6HPO capsule 10/20/17 Lactobacillus Acidophilus [Bacid -] 1 tab PO DAILY tab 10/20/17 Metoprolol Succinate [Toprol XL -] 50 mg PO BID tab.sr.24h 10/20/17 Mirtazapine [Remeron -] 7.5 mg PO HS tablet 10/20/17 Pantoprazole Sodium [Protonix -] 20 mg PO DAILY tablet.ec 10/20/17 Tamsulosin HCl [Flomax -] 0.4 mg PO DAILY@0830 cap.er.24h 10/20/17 Triamcinolone 0.1% Cream 1 applic TP DAILY applic 10/20/17 [Aristocort 0.1% Cream -] CT head and c-spine were negative ASSESSMENT AND PLAN: Patient is an 88y/o female with HTN, hypothyroidism, HLD, Arguelles's Palsy and C2- C3 fracture (2018) who presents with sudden onset of right arm and hand pain. #Acute right arm pain with tingling sensationr/o CVA; neuro/cardio consulted #right upper extremity weakness -MRI brain and L-spine, echo, carotid dopplers, troponin #right lower extremity weakness- plantar flexion swallow eval, continue atorvastatin 20mg, ASA 81mg daily after #right wrist nodule: ganglion cyst #hypothyroidism: check TSH, T4 , Synthroid 25mcg #HTN continue home meds #Hx of depression/HLD continue home meds. follow MRI/all the Cts DVT Ppx: Lovenox 40mg
--- NOTE | 2019-03-01 15:23 | HP ---
CHIEF COMPLAINT: right arm pain HISTORY OF PRESENT ILLNESS: Ms. 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 She reports sudden onset that woke her up from sleep at 2:00am today. She reports pain in her hand and wrist that radiates to her shoulder. Heat and OTC medications did not improve the pain. She has not had pain like this previously. She also reports her right hand was cooler than usual, and she had some numbness in it. It improved with ice and medications in the ED. She also reports a large nodule on her dorsal wrist that was not present until the pain started. She denies recent URI or GI illness. She denies headache. She reports intermittent dizziness that is positional and resolves quickly, and this is her baseline. She denies nausea, chest pain, loss of consciousness, fall, or head injury. 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 Allergies No Known Allergies Allergy (Verified 10/12/17 08:30) HOME MEDICATIONS: Home Medications Home Medications Medication Instructions Recorded Levothyroxine [Synthroid -] 25 mcg PO DAILY 10/12/17 Pravastatin Sodium 20 mg PO DAILY 10/12/17 Venlafaxine HCl ER [Effexor Xr -] 37.5 mg PO DAILY 10/12/17 Amlodipine Besylate [Norvasc -] 5 mg PO DAILY 03/01/19 Atenolol [Tenormin -] 25 mg PO DAILY 03/01/19 REVIEW OF SYSTEMS See HPI PHYSICAL EXAMINATION Vital Signs - 24 hr 03/01/19 09:12 Temperature 97.6 F Pulse Rate 64 Respiratory 18 Rate Blood Pressure 183/95 H O2 Sat by Pulse 97 Oximetry (%) GENERAL: Awake, alert, and fully oriented, in no acute distress. HEAD: Normal with no signs of trauma. Left nasolabial fold flattening. Asymmetrical smile. EYES: Pupils equal, round and reactive to light, extraocular movements intact, conjunctiva clear. No lid lag. EARS, NOSE, THROAT: Ears normal, nares patent, moist mucous membranes. NECK: Normal range of motion, supple without lymphadenopathy, JVD, or masses. LUNGS: Clear to auscultation bilaterally. HEART: Regular rate and rhythm, normal S1 and S2, no murmur ABDOMEN: Soft, nontender, not distended, normoactive bowel sounds, no masses MUSCULOSKELETAL: Normal range of motion at all joints. UPPER EXTREMITIES: 2+ pulses, warm, well-perfused. No cyanosis. No clubbing. No peripheral edema. Large firm nodule at dorsal surface non-tender to touch, no ecchymosis LOWER EXTREMITIES: Warm, well-perfused. No peripheral edema. NEUROLOGICAL: Cranial nerves II-XII grossly intact, left nasolabial fold flattening. 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 Sensation grossly intact. Biceps and patellar reflexes intact b/l. Normal speech. PSYCHIATRIC: Cooperative. Good eye contact. Appropriate mood and affect. SKIN: Warm, dry, normal turgor Laboratory Results - last 24 hr 03/01/19 03/01/19 10:24 10:38 WBC 5.4 RBC 4.69 Hgb 13.9 Hct 41.8 D MCV 89.0 MCH 29.6 MCHC 33.2 RDW 15.8 H D Plt Count 236 MPV 8.8 Absolute Neuts (auto) 3.0 Neutrophils % 54.3 Lymphocytes % 24.3 D Monocytes % 19.4 H Eosinophils % 1.6 Basophils % 0.4 Nucleated RBC % 0 Sodium 141 Potassium 3.5 Chloride 106 Carbon Dioxide 28 Anion Gap 8 BUN 16.0 Creatinine 0.7 Est GFR (CKD-EPI)AfAm 89.66 Est GFR (CKD-EPI)NonAf 77.36 Random Glucose 105 Calcium 8.6 Total Bilirubin 0.5 AST 17 ALT 23 Alkaline Phosphatase 69 Total Protein 6.7 Albumin 3.4 ASSESSMENT/PLAN: Ms. 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 CT head and c-spine were negative for acute processes. #r/o CVA #right upper extremity weakness #right lower extremity weakness- plantar flexion -unlikely cord compression- Dr. Hallman aware and will evaluate pt, no further decadron at this time -MRI brain and L-spine -echo -carotid dopplers -right arm doppler -troponin -hold anti-hypertensives for permissive HTN -monitor vitals/neuro checks -HOB elevated -fall precautions -swallow eval -cardiology consulted -neurology is following -atorvastatin 20mg -ASA 325mg now -ASA 81mg daily after #right wrist nodule -possible ganglion cyst -CT right upper extremity #hypothyroidism -TSH -T4 -continue Synthroid 25mcg #HTN -hold home meds #HLD -stop home statin -start atorvastatin 20mg #depression -Effexor DVT Ppx Lovenox 40mg FEN PO fluids monitor labs sodium controlled chopped diet Visit type - Emergency Visit Emergency Visit: Yes ED Registration Date: 03/01/19 Care time: The patient presented to the Emergency Department on the above date and was hospitalized for further evaluation of their emergent condition. - New Patient This patient is new to me today: Yes Date on this admission: 03/01/19 - Critical Care Critical Care patient: No ATTENDING PHYSICIAN STATEMENT I saw and evaluated the patient. I reviewed the resident's note and discussed the case with the resident. I agree with the resident's findings and plan as documented. SUBJECTIVE: OBJECTIVE: ASSESSMENT AND PLAN:
--- NOTE | 2019-03-01 15:37 | CONSULT ---
Admitting History and Physical - Primary Care Physician PCP: Yaneli Wade - Admission History of Present Illness: Per EMR- 88 F with h/o HTN, hypothyroid, C2-C3 fx, presenting to ED with R arm weakness and numbness. Pt states that her symptoms began last night when she noticed her R hand felt very cold. She states that she also had pain radiating from her hand all the way to her shoulder. 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 Pt denies any headache or neck pain. Has not had any falls or injuries since her C-spine fracture last year. Pt denies weakness/numbness in any other extremity. 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) Seen in 2018 following fx- Tolerated Dysphagia Minced [place] Thick Magic Cup, Ensure Pudding, Other (Ensure Compact.) Pt reports h/o "[place] Palsy three times" History Source: Patient, Medical Record Limitations to Obtaining History: Clinical Condition (Appropriate but tangential , logorrheic) - Smoking History Smoking history: Former smoker Have you smoked in the past 12 months: No - Alcohol/Substance Use Hx Alcohol Use: No History - Admission Reason For Visit: WEAKNESS OF RIGHT UPPER EXTREMITY - Diagnostics X-ray: Report Reviewed CT Scan: Report Reviewed MRI: Pending - General Mental Status: Alert and Oriented, Awake and Alert, Able to Follow Commands Attention: Intact Ability to Follow Directions: Good Head/Neck Control: Good - Hearing Hearing: Functional Speech Evaluation - Communication Primary Language: SL[place] - Speech Production Able to Make Needs Known: Yes: WNL Intelligibility: Yes: WNL - Speech Characteristics Voice Loudness: Normal Voice Pitch: Yes: Normal Voice Phonatory-based Quality: Yes: Normal Speech Pattern: Normal Speech Clarity: < 100% Nasal Resonance: Normal Articulation: Yes: Imprecise Rate of Speech: Too Fast - Language/Auditory Comprehension Follows: Yes: 1 Stage Simple Commands Observation: Able to respond to yes/no queries: Yes, Yes/No Confusion: No, Comprehends Conversational Speech: Yes - Language/Verbal Expression Aphasia: Yes: Anomia Able to Respond to Simple Queries: Yes: WNL Able to Communicate Wants and Needs: Yes: WNL Functional Communication Status: Yes: WNL Attention: Yes: Mild Impairment - Swallow Evaluation/Bedside Assessment Current Nutritional Intake: NPO Oral Secretions: Yes: WFL Dentition: Yes: Missing Teeth (dentures at home) Lingual Speed of Movement: Normal Lingual Movement Strgth Against Opposition: Normal Lingual Movement Characteristics: Normal Laryngeal Elevation: WFL Laryngeal Movement: Able to Palpate Rate of Intake: Impulsive Bolus Size: WFL Labial Seal: WFL Chewing: Impaired Oral Prep Time: WFL A-P Transit: WFL Pocketing: None Coughing/Throat Clear: No (3 oz water (-)) Change in Voice: No Recommendations - Speech Evaluation, Impression/Plan Impression: Appropriate but tangential, logorrheic, rapid speech. oriented. language intact. Imprecise speech sec [place] Palsy x 3? Facial Assymetry, L weaker than right? but right side weakness too, but difficult to assess. Swallowing intact. Many missing teeth. Dentures at home, which she generally wears for meals. - Dysphagia Impressions/Plan Dysphagia Impressions: Minimal Impairment *Silent aspiration: cannot be R/O at bedside Dysphagia Treatment Plan: Small Bites, Chin Tuck/Down, Safe Rate, 1/2 tsp. at a time, OOB for meals, OOB for 1 h. after meals - Recommendations Diet Consistency: Other (chopped) Medication Administration: Whole with water Liquids: Thin Liquids
[2019-03-01] MEDS ORDERED: ASPIRIN 325 MG ENTERIC COATED TABLET (FP) PO ONE (15:46)
--- NOTE | 2019-03-01 15:48 | PN.NIHSS ---
NIH Stroke Scale - Initial Evaluation Level of consciousness: Alert Ask patient the month and their age: Answers both correctly Ask patient to open & close eyes; make fist and let go: Obeys both correctly Best gaze (horizontal eye movement): Normal Visual field testing: No visual field loss Facial paresis (Show teeth/raise eyebrows/close eyes tight): Minor paralysis ( flattened nasolabial fold, asymmetry on smiling) (chronic left droop- hx of Arguelles 's palsy) Motor Function: Left Arm: Normal Motor Function: Right Arm: Normal (extends arm 90 (or 45) degrees for 10 seconds without drift Motor Function: Left Leg: Normal (extends leg 30 degrees for 5 seconds without drift) Motor Function: Right Leg: Normal (extends leg 30 degrees for 5 seconds without drift) Limb Ataxia: No ataxia Sensory(Use pinprick test arms,legs,trunk,face/side to side): Normal Best language (Describe picture, name items, read sentences): No Aphasia Dysarthria (read several words): Normal articulation Extinction and Inattention: No abnormality - Total Score NIH Stroke Scale Score: 1
[2019-03-01] MEDS ORDERED: ASPIRIN 325 MG ENTERIC COATED TABLET (FP) ONE (16:36)
[2019-03-01 18:50] VITALS: BMI 25.5
[2019-03-01 19:50] LABS: EPI CELLS 6.4 /HPF (0-5/HPF); HYALINE CASTS 1 /lpf (0-8); PH,URINE 8.5 (5.0-8.0); URINE APPEARANCE CLOUDY; URINE BACTERIA 124.2 /hpf (NEGATIVE); URINE BILIRUBIN NEGATIVE (NEGATIVE); URINE COLOR YELLOW; URINE GLUCOSE (UA) NEGATIVE (NEGATIVE); URINE KETONE NEGATIVE (NEGATIVE); URINE LEUK ESTERASE 2+ (NEGATIVE); URINE NITRITE NEGATIVE (NEGATIVE); URINE PROTEIN 1+ (NEGATIVE); URINE RBC 3 /hpf (0-4); URINE UROBILINOGEN 0.2 mg/dL (0.2-1.0); URINE WBC 11 /hpf (0-5)
[2019-03-01] MEDS ORDERED: ATORVASTATIN CA 20 MG TABLET (FP) PO SCH (22:00)
[2019-03-02] MEDS ORDERED: LEVOTHYROXINE NA 25 MCG TABLET (FP) PO SCH (07:00)
[2019-03-02 07:36] LABS: BASO % 0.1 % (0-2.0); HEMATOCRIT 37.8 % (32.4-45.2); HEMOGLOBIN 12.9 GM/dL (10.7-15.3); LYMPH % 23.5 % (8-40); MCH 29.9 pg (25.7-33.7); MCHC 34.2 g/dl (32.0-36.0); MEAN CELL VOLUME 87.5 fl (80-96); MEAN PLT VOLUME 8.7 fl (7.5-11.1); MONO % 14.6 % (3.8-10.2); NEUT % 61.8 % (42.8-82.8); PLATELET COUNT 230 K/MM3 (134-434); RBC 4.32 M/mm3 (3.60-5.2); RDW 15.7 % (11.6-15.6); WHITE BLOOD COUNT 4.3 K/mm3 (4.0-10.0)
--- NOTE | 2019-03-02 07:38 | CON.CARD ---
Consult Consult Specialty:: cardio - History of Present Illness Chief Complaint: R arm pain History of Present Illness: 88 F presented with R arm pain. severe pain down arm and fingers at home, couldn't sleep. tried running it under warm water and heating it in other ways--no improvement. + numbness as well. was able to use the arm and move it but cannot control if any motor weakness or not. while in ER a nurse with cold hands touched the area AND THE PAIN INSTANTLY RESOLVED WITH HER TOUCH, "like a miracle". remains with no pain, numbness and no motor weakness. CT head and neck unremarkable. steroids started for ? cord compression. RUE arterial doppler "somewhat diminished biphasic flow". carotids mild increased velocity on left. 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) and C2-C3 fracture (2018) - Past Medical History ...: No - Alcohol/Substance Use Hx Alcohol Use: No - Smoking History Smoking history: Former smoker Have you smoked in the past 12 months: No Home Medications - Allergies Allergies/Adverse Reactions: Allergies Allergy/AdvReac Type Severity Reaction Status Date / Time No Known Allergies Allergy Verified 10/12/17 08:30 - Home Medications Home Medications: Ambulatory Orders Levothyroxine [Synthroid -] 22 mcg PO DAILY 10/12/17 Pravastatin Sodium 20 mg PO DAILY 10/12/17 Venlafaxine HCl ER [Effexor Xr -] 37.5 mg PO DAILY 10/12/17 Atenolol [Tenormin -] 25 mg PO DAILY 03/01/19 Felodipine [Felodipine ER] 5 mg PO DAILY 03/01/19 Family Medical History Family History: Denies (no known cmp) Review of Systems - Review of Systems Constitutional: denies: Chills, Fever Eyes: denies: Eye Pain HENT: denies: Nasal Congestion Neck: denies: Stiffness Cardiovascular: denies: Palpitations Respiratory: denies: Orthopnea, PND Gastrointestinal: denies: Diarrhea, Rectal Bleeding Genitourinary: denies: Burning, Hematuria Musculoskeletal: denies: Muscle Pain Integumentary: denies: Rash Neurological: reports: Numbness, Parasthesia. denies: Seizure, Syncope Endocrine: denies: Excessive Sweating Hematology/Lymphatic: denies: Excessive Bleeding Vital Signs: Vital Signs Temperature 97.5 F L 03/01/19 19:57 Pulse Rate 67 03/02/19 05:46 Respiratory Rate 20 03/02/19 05:46 Blood Pressure 151/80 03/02/19 05:46 O2 Sat by Pulse Oximetry (%) 95 03/01/19 19:57 Constitutional: Yes: Well Nourished, No Distress Eyes: No: Sclera Icterus HENT: No: Nasal Congestion Neck: No: Decreased ROM Respiratory: Yes: CTA Bilaterally. No: Accessory Muscle Use, Rales, Wheezes Gastrointestinal: Yes: Normal Bowel Sounds. No: Distention, Hepatomegaly, Palpable Mass, Tenderness Cardiovascular: Yes: Regular Rate and Rhythm JVD: No Carotid Bruit: No PMI: Non-Displaced Heart Sounds: Yes: S1, S2. No: Gallop Murmur: No: Systolic Murmur, Diastolic Murmur Musculoskeletal: Yes: Other (No kyphosis) Extremities: No: Cool, Cyanosis Edema: No Peripheral Pulses: 2+ Left Carotid, 2+ Right Carotid, 2+ Left Doralis Pedis, 2+ Right Dorsalis Pedis Integumentary: No: Jaundice Neurological: Yes: Alert, Oriented (x3) Psychiatric: No: Agitated - Other Data Labs, Other Data: Troponin, BNP 03/01/19 03/01/19 10:24 18:50 Troponin I < 0.02 < 0.02 Troponin, BNP 03/01/19 03/01/19 10:24 18:50 Troponin I < 0.02 < 0.02 Assessment/Plan Carotids: L PSV 131, possibly 50-70% stenosis ECG: NSR, no path q's. nonsp TWAs lateral leads new vs prior tele: NSR, no events R arm pain: -MRI brain pending -neuro consult pending -doubt PSV measured in L carotid represents > 50% stenosis, however if deemed to have left-brain acute stroke/MICK, then she will require vascular evaluation for ? CEA--this decision will be left strictly to discretion of neurology risk assessment consultant -tele benign HTN: -bp mildly elevated -await neuro eval: if acute cva, defer bp targets to neuro HPL -cont home low intensity statin (regimen will be intensified if acute cva dx'd here)
[2019-03-02 08:08] LABS: ALBUMIN 3.1 g/dl (3.4-5.0); BILIRUBIN,TOTAL 0.2 mg/dL (0.2-1); BLOOD UREA NITROGEN 23.2 mg/dL (7-18); CALCIUM 8.2 mg/dL (8.5-10.1); CREATININE 0.8 mg/dL (0.55-1.3); MAGNESIUM 2.6 mg/dL (1.8-2.4); POTASSIUM 3.9 mmol/L (3.5-5.1)
[2019-03-02] MEDS ORDERED: PT OWN MED DRAWER 7, Y5N ONE (08:43)
[2019-03-02] MEDS ORDERED: ASPIRIN COATED 81 MG TABLET.EC PO SCH (10:00)
[2019-03-02] MEDS ORDERED: ATENOLOL 25 MG TABLET (FP) PO SCH ×2 (10:00→14:45)
[2019-03-02] MEDS ORDERED: VENLAFAXINE HCL 37.5 MG E.R. CAPSULE (FP) PO SCH (10:00)
[2019-03-02] MEDS ORDERED: ENOXAPARIN NA (PORCINE) 40 MG/0.4 ML DISP.SYRIN SQ SCH (10:00)
[2019-03-02 11:02] VITALS: TEMP 98.7
--- NOTE | 2019-03-02 11:05 | CON.NEURO ---
Consult - Past Medical History ...: No - Alcohol/Substance Use Hx Alcohol Use: No - Smoking History Smoking history: Former smoker Have you smoked in the past 12 months: No Home Medications - Allergies Allergies/Adverse Reactions: Allergies Allergy/AdvReac Type Severity Reaction Status Date / Time No Known Allergies Allergy Verified 10/12/17 08:30 - Home Medications Home Medications: Ambulatory Orders Levothyroxine [Synthroid -] 22 mcg PO DAILY 10/12/17 Pravastatin Sodium 20 mg PO DAILY 10/12/17 Venlafaxine HCl ER [Effexor Xr -] 37.5 mg PO DAILY 10/12/17 Atenolol [Tenormin -] 25 mg PO DAILY 03/01/19 Felodipine [Felodipine ER] 5 mg PO DAILY 03/01/19 Physical Exam-Neuro Vital Signs: Vital Signs Temperature 97.5 F L 03/01/19 19:57 Pulse Rate 67 03/02/19 05:46 Respiratory Rate 20 03/02/19 05:46 Blood Pressure 151/80 03/02/19 05:46 O2 Sat by Pulse Oximetry (%) 95 03/01/19 19:57 Labs: CBC, BMP 03/02/19 07:00 03/02/19 07:00 Assessment/Plan cc Right arm, pain, coldness and weakness for one day HPI 88 year old female with past medical history of HTN,Hypothyroidism, HLD, [place] Palsy, c2-c3 fracture (s/p surgery by dr Mcmahon). She presented with right arm, feeling of cold, pain and weakness for one day. She denies significant weakness, and she has wrist ganglia nad swelling on right wrist. patinet was using heating pad and rubbing her right arm but still continue to have pain and cold feeling. Patient has ct head and ct neck it was urremarkable. Patinet denies any headhace, do dsyarthria, dipolopia or dysphagia. Patient denies any weakness of leg. She was given one dose of decadron . Her syptoms leonidas resolved and her mri of brain is pending. 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 Allergies No Known Allergies Allergy (Verified 10/12/17 08:30) HOME MEDICATIONS: Home Medications Home Medications Medication Instructions Recorded Levothyroxine [Synthroid -] 25 mcg PO DAILY 10/12/17 Pravastatin Sodium 20 mg PO DAILY 10/12/17 Venlafaxine HCl ER [Effexor Xr -] 37.5 mg PO DAILY 10/12/17 Amlodipine Besylate [Norvasc -] 5 mg PO DAILY 03/01/19 Atenolol [Tenormin -] 25 mg PO DAILY 03/01/19 ROS,FH,SH reviewed in chart NEUROLOGICAL EXAMINATION Alert oriented x 3, speech is normal vss neck is supple eomi, pupils reactive no face asymmetry moving all extremity there is mild right deltoid weakness ? old right bicp, tricep, elbow flexion extension and wrist flexion and extension is normal there is no planter flexion or extension weakness of either leg sensation is normal reflex are generalized symmetrical and grade 2 ct head and c c spine is unremarkable mri of brain is pending carotid moderate stenosis in left ica Assessment/Plan 1. right arm, tingling, weakness and cold sensation seems to be mild radicula rsypmtoms vs galglia cyst irritating meidan nerve and now symptoms resolved, ? right deltoid weakness can be investigated by mri of c spine and EMG as outpatient . 2. CLinically less likley to be stroke and left moderate stenosis is asymptomatic stenosis, continue aspirin and statin, unlikley that she would need CEA at this time. Patient agree with this assessment and not open to any procedure. A routine outpatient vascular consult can be obtained. Once mri of brain is normal and patient is almost back to baseline, she can be discharged home and folllow up outpatient. Thanking you so much Corrie Hallman MD
[2019-03-02 14:02] VITALS: BP 170/75; PULSE 64
--- NOTE | 2019-03-02 14:29 | EKG ---
Test Reason : Blood Pressure : / mmHG Vent. Rate : 057 BPM Atrial Rate : 057 BPM P-R Int : 136 ms QRS Dur : 090 ms QT Int : 432 ms P-R-T Axes : 020 -04 021 degrees QTc Int : 420 ms SINUS BRADYCARDIA WITH PREMATURE ATRIAL COMPLEXES NONSPECIFIC T WAVE ABNORMALITY ABNORMAL ECG WHEN COMPARED WITH ECG OF 12-OCT-2017 08:24, PREMATURE ATRIAL COMPLEXES ARE NOW PRESENT VENT. RATE HAS DECREASED BY 38 BPM T WAVE INVERSION NOW EVIDENT IN LATERAL LEADS Confirmed by JOSE TALAVERA MD ([id number]) on 03/02/2019 2:29:04 PM Referred By: Confirmed By:JOSE TALAVERA MD
--- NOTE | 2019-03-02 14:36 | DS ---
Physical Exam: SUBJECTIVE: Patient seen and examined Patient is comfortable now with no acute distress. feels better, back to her baseline. Patient was told that her bp is elevated and given 2 medications, and was asked to stay for 2 hrs but patient refused to stay and wanted to go back to her independent living. Stated that her anxiety is going to make her worse if she stays in the hospital. OBJECTIVE: Vital Signs Temperature 98.7 F 03/02/19 10:00 Pulse Rate 64 03/02/19 14:00 Respiratory Rate 20 03/02/19 14:00 Blood Pressure 169/77 03/02/19 14:00 O2 Sat by Pulse Oximetry (%) 95 03/01/19 19:57 PHYSICAL EXAM GENERAL: The patient is awake, alert, and fully oriented, in no acute distress. HEAD: Normal with no signs of trauma. EYES: PERRL, extraocular movements intact, sclera anicteric, conjunctiva clear. ENT: Ears normal, oropharynx clear without exudates, moist mucous membranes. NECK: Trachea midline, full range of motion, supple. LUNGS: Breath sounds equal, clear to auscultation bilaterally, no wheezes, no crackles, no accessory muscle use. HEART: Regular rate and rhythm, S1, S2 positive , no murmur appreciated ,no rub or gallop. ABDOMEN: Soft, NT,nd, normoactive bowel sounds, no guarding, no rebound, no hepatosplenomegaly, no masses. EXTREMITIES: 2+ pulses, warm, well-perfused, no edema. NEUROLOGICAL: Cranial nerves II through XII grossly intact. Normal speech, gait not observed. PSYCH: Normal mood, normal affect. SKIN: Warm, dry, normal turgor, no rashes or lesions noted. LABS CBCD WBC 4.3 K/mm3 (4.0-10.0) 03/02/19 07:00 RBC 4.32 M/mm3 (3.60-5.2) 03/02/19 07:00 Hgb 12.9 GM/dL (10.7-15.3) 03/02/19 07:00 Hct 37.8 % (32.4-45.2) 03/02/19 07:00 MCV 87.5 fl (80-96) 03/02/19 07:00 MCHC 34.2 g/dl (32.0-36.0) 03/02/19 07:00 RDW 15.7 % (11.6-15.6) H 03/02/19 07:00 Plt Count 230 K/MM3 (134-434) 03/02/19 07:00 MPV 8.7 fl (7.5-11.1) 03/02/19 07:00 CMP Sodium 141 mmol/L (136-145) 03/02/19 07:00 Potassium 3.9 mmol/L (3.5-5.1) 03/02/19 07:00 Chloride 106 mmol/L (98-107) 03/02/19 07:00 Carbon Dioxide 28 mmol/L (21-32) 03/02/19 07:00 Anion Gap 7 MMOL/L (8-16) L 03/02/19 07:00 BUN 23.2 mg/dL (7-18) H 03/02/19 07:00 Creatinine 0.8 mg/dL (0.55-1.3) 03/02/19 07:00 Random Glucose 120 mg/dL (74-106) H 03/02/19 07:00 Calcium 8.2 mg/dL (8.5-10.1) L 03/02/19 07:00 Total Bilirubin 0.2 mg/dL (0.2-1) 03/02/19 07:00 AST 15 U/L (15-37) 03/02/19 07:00 ALT 21 U/L (13-61) 03/02/19 07:00 Alkaline Phosphatase 65 U/L (45-117) 03/02/19 07:00 Total Protein 6.0 g/dl (6.4-8.2) L 03/02/19 07:00 Albumin 3.1 g/dl (3.4-5.0) L 03/02/19 07:00 CARDIAC ENZYMES Troponin I < 0.02 ng/ml (0.00-0.05) 03/01/19 18:50 CT head and c-spine were negative HOSPITAL COURSE: Date of Admission:03/01/19 Date of Discharge: 03/02/19 Patient is an 88y/o female with HTN, hypothyroidism, HLD, Arguelles's Palsy and C2- C3 fracture (2018) who presents with sudden onset of right arm and hand pain. # Acute CVA is rulled out by MRI which is negative, her symptoms were most likely related to mild radicular symptoms vs galglionic cyst irritating median nerve presented with right arm, tingling, weakness and cold sensation which resolved now. #Right deltoid weakness outpatient mri of c spine and EMG # left proximal internal carotid artery 50-70% stenosis, patient is asymptomatic ; will continue aspirin and statin, as per neuro patient does not need CEA at this time. Outpatient vascular consult with . All the results reviewed. #right wrist nodule: is ganglion cyst #hypothyroidism: continue Synthroid 25mcg #HTN Uncontrolled: added Diovan 80mg since elevated BP, continue home meds as well. discussed with cardio . #Hx of depression/HLD continue home meds. patient is being discharged home, given extra dose of tenormin and diovan given to the patient before her discharge , patient dis not want to stay after extra dose diovan and tenormin. Stated that she will feel anxious. patient was discharged to independent living. Minutes to complete discharge: 35 Discharge Summary Problems reviewed: Yes Reason For Visit: WEAKNESS OF RIGHT UPPER EXTREMITY Current Active Problems RUE weakness (Acute) - Instructions Diet, Activity, Other Instructions: Low fat/low cholesterol diet YOU PRESENTED WITH STROKE LIKE SYMPTOMS, NO STROKE WAS FOUND ON YOUR Mri. pLEASE CONTINUE TO TAKE YOUR BLOOD PRESSURE MEDICATION AT HOME, TAKE YOUR ATENOLOL, fELODIPINE AND ADD dIOVAN 80MG . PLEASE CONTINUE TAKING THEM AND HAVE YOUR BLOOD PRESSURE CHECK IN A WEEK PERIOD WITH YOUR PRIMARY CARE DOCTOR OR CAN GO TO THE RESIDENT'S CLINIC WITH dR. FIGUEROA. lOW SODIUM DIET. mri of c spine and EMG as outpatient WITH THE NEUROLOGIST AN OUTPATIENT. ADDED vALSARTAN 80MG DAILY PLEASE CONTINUE TAKING IT WITH YOUR OTHER BP MEDICATIONS, Referrals: Jeff Hallman MD [Staff Physician] - 1 Week Som Cain MD [Staff Physician] - 3 Weeks (Vascular evaluation of the carotid left side ) Mathew Thapa MD [Staff Physician] - 1 Week Disposition: [facility] - Home Medications Comprehensive Discharge Medication List: Ambulatory Orders Levothyroxine [Synthroid -] 22 mcg PO DAILY 10/12/17 Pravastatin Sodium 20 mg PO DAILY 10/12/17 Venlafaxine HCl ER [Effexor Xr -] 37.5 mg PO DAILY 10/12/17 Atenolol [Tenormin -] 25 mg PO DAILY 03/01/19 Felodipine [Felodipine ER] 5 mg PO DAILY 03/01/19 Aspirin Coated [Ecotrin -] 81 mg PO DAILY #30 tablet.ec 03/02/19 This patient is new to me today: No Emergency Visit: Yes ED Registration Date: 03/01/19 Care time: The patient presented to the Emergency Department on the above date and was hospitalized for further evaluation of their emergent condition. Critical Care patient: No - Discharge Referral Referred to [facility] No
[2019-03-02] MEDS ORDERED: VALSARTAN 80 MG TABLET (UD) PO ONE (14:43)
[2019-03-02] MEDS ORDERED: FELODIPINE 5 MG PO SCH (14:45)
== END 2019-03-02 15:00 | DRG 74 ==
LOC: JER 08:59 → JERBED 14:25 → J4W 17:56
PROVIDERS: ADMIT Internal Medicine; ATTEND Internal Medicine
DX: M54.12 Radiculopathy, cervical region (principal); M79.641 Pain in right hand; E03.9 Hypothyroidism, unspecified; I10 Essential (primary) hypertension; M48.52XS Collapsed vertebra, not elsewhere classified, cervical region, sequela of fracture; E78.00 Pure hypercholesterolemia, unspecified; E78.5 Hyperlipidemia, unspecified; M67.4 Ganglion; G51.0 Bell's palsy; I65.22 Occlusion and stenosis of left carotid artery; F32.9 Major depressive disorder, single episode, unspecified; Z87.891 Personal history of nicotine dependence; Z96.652 Presence of left artificial knee joint
CPT/HCPCS: 36415; 70450-TC; 70551-TC; 72125-TC; 80053; 81003; 83735; 84436; 84439; 84443; 84484; 85025; 93005; 93010; 93880-TC; 93930; 93971; 99285-25; J1100

== ENCOUNTER 2020-07-14 22:16 | Emergency (ER) | payer OTHER ==
[2020-07-14] MEDS ORDERED: ACETAMINOPHEN 1000 MG/100 ML VIAL (NON FORMULARY) IVPB ONE (22:35)
[2020-07-14] MEDS ORDERED: ACETAMINOPHEN INJECTION 100 ML IVPB ONE (22:40)
[2020-07-14 22:42] VITALS: BP 189/87; PULSE 65; TEMP 97.6; BMI 21.9
[2020-07-14] MEDS ORDERED: LIDOCAINE 5% TOPICAL PATCH TP ONE (22:46)
[2020-07-14] MEDS ORDERED: ACETAMINOPHEN 325 MG TABLET (FP) PO ONE (22:46)
[2020-07-14] MEDS ORDERED: LIDOCAINE 5% TOPICAL PATCH ONE (22:48)
[2020-07-14] MEDS ORDERED: ACETAMINOPHEN 325 MG TABLET (FP) ONE (22:48)
[2020-07-14] MEDS ORDERED: morphine CARPU-JECT 2 MG/1 ML DISP.SYRIN IM ONE (23:18)
[2020-07-14] MEDS ORDERED: MORPHINE SULFATE 2 MG/ML VIAL ONE (23:20)
[2020-07-14 23:22] LABS: BASO % 0.5 % (0-2.0); EOS % 1.5 % (0-4.5); HEMATOCRIT 43.6 % (32.4-45.2); LYMPH % 21.2 % (8-40); MCH 30.7 pg (25.7-33.7); MCHC 34.5 g/dl (32.0-36.0); MEAN PLT VOLUME 9.1 fl (7.5-11.1); MONO % 21.6 % (3.8-10.2); NEUT % 55.2 % (42.8-82.8); PLATELET COUNT 215 K/MM3 (134-434); RDW 16.2 % (11.6-15.6); WHITE BLOOD COUNT 7.6 K/mm3 (4.0-10.0)
[2020-07-14 23:41] LABS: INR 0.97 (0.83-1.09)
[2020-07-14 23:44] LABS: ACTIVATED PTT 29.2 SECONDS (25.2-36.5)
[2020-07-14 23:49] LABS: CHLORIDE 101 mmol/L (98-107); SODIUM 138 mmol/L (136-145)
[2020-07-14 23:51] LABS: ALBUMIN 4.2 g/dl (3.4-5.0); ANION GAP 6 MMOL/L (8-16); BLOOD UREA NITROGEN 19.8 mg/dL (7-18); CO2 31 mmol/L (21-32)
[2020-07-14 23:52] LABS: GLUCOSE,RANDOM 103 mg/dL (74-106)
[2020-07-14 23:54] LABS: SGOT/AST 27 U/L (15-37); SGPT/ALT 32 U/L (13-61)
[2020-07-14 23:55] LABS: CREATININE 0.8 mg/dL (0.55-1.3)
[2020-07-14 23:56] LABS: BILIRUBIN,TOTAL 0.3 mg/dL (0.2-1); TOT PROT 7.7 g/dl (6.4-8.2)
[2020-07-14 23:57] LABS: ALK PHOS 83 U/L (45-117)
[2020-07-15 01:10] LABS: EPI CELLS 3 /uL (0-25.1); HYALINE CASTS 0 /uL (0-3.1); URINE APPEARANCE CLEAR; URINE BACTERIA 8 /uL (0-1359); URINE BILIRUBIN NEGATIVE (NEGATIVE); URINE COLOR YELLOW; URINE GLUCOSE (UA) NEGATIVE (NEGATIVE); URINE KETONE NEGATIVE (NEGATIVE); URINE LEUK ESTERASE NEGATIVE (NEGATIVE); URINE NITRITE NEGATIVE (NEGATIVE); URINE PROTEIN NEGATIVE (NEGATIVE); URINE RBC 349 /uL (0-23.9); URINE UROBILINOGEN 0.2 mg/dL (0.2-1.0); URINE WBC 1 /uL (0-25.8)
[2020-07-15] MEDS ORDERED: morphine CARPU-JECT 2 MG/1 ML DISP.SYRIN IM ONE (01:42)
[2020-07-15 02:01] LABS: ANISOCYTOSIS 2+; MACROCYTOSIS 0; PLATELET ESTIMATE NORMAL
[2020-07-15 02:22] LABS: BASO % 0.6 % (0-2.0); HEMATOCRIT 36.5 % (32.4-45.2); HEMOGLOBIN 12.2 GM/dL (10.7-15.3); LYMPH % 13.1 % (8-40); MCH 29.9 pg (25.7-33.7); MCHC 33.5 g/dl (32.0-36.0); MEAN CELL VOLUME 89.2 fl (80-96); MEAN PLT VOLUME 8.9 fl (7.5-11.1); MONO % 24.7 % (3.8-10.2); NEUT % 60.6 % (42.8-82.8); PLATELET COUNT 184 K/MM3 (134-434); RBC 4.09 M/mm3 (3.60-5.2); RDW 15.9 % (11.6-15.6); WHITE BLOOD COUNT 11.6 K/mm3 (4.0-10.0)
[2020-07-15] MEDS ORDERED: morphine CARPU-JECT 2 MG/1 ML DISP.SYRIN IVPUSH ONE (02:47)
[2020-07-15] MEDS ORDERED: MORPHINE SULFATE 2 MG/ML VIAL ONE (03:05)
[2020-07-15 05:26] LABS: ANISOCYTOSIS 2+; MACROCYTOSIS 0; PLATELET ESTIMATE NORMAL; ROULEAU 1+
[2020-07-15] MEDS ORDERED: LIDOCAINE PATCH REMOVAL MC SCH (11:00)
== END 2020-07-15 04:58 | disposition short-term general hospital (02) ==
LOC: JER 22:16
PROC: 3E023NZ Introduction of Analgesics, Hypnotics, Sedatives into Muscle, Percutaneous Approach (ICD-10-PCS; principal; 2020-07-14)
DX: S32.82XA Multiple fractures of pelvis without disruption of pelvic ring, initial encounter for closed fracture (principal)
CPT/HCPCS: 36415; 70450-TC; 71045-TC-FY; 72125-TC; 72131-TC; 72192-TC; 73552-TC-RT-FY; 80053; 81003; 84484; 85025; 85610; 85730; 86850; 86900; 86901; 87086; 93005; 93010; 99285-25; C9803; U0003; U0005